=== PATIENT | female | born 1960 | race Caucasian/White ===

== ENCOUNTER 2021-12-06 10:25 | Outpatient (REF) | payer OTHER, SELFPAY ==
[2021-12-06 10:31] LABS: MANUAL DIFF FLAG NO
[2021-12-06 10:49] LABS: Basophils Absolute Auto 0.1 X10*3/uL (0.0-0.2); Basophils Percent Auto 0.9 % (0-2); Eosinophils Absolute Auto 0.2 X10*3/uL (0.0-0.4); Eosinophils Percent Auto 3.2 % (0-4); Hematocrit 45.8 % (37.0-47.0); Hemoglobin 15.4 g/dl (12.0-16.0); Imm Gran Abs Auto 0.01 X10*3/uL (0.00-0.03); Imm Gran Pct Auto 0.2 % (0.0-0.4); Lymphocytes Absolute Auto 1.6 X10*3/uL (1.2-4.9); Lymphocytes Percent Auto 28.5 % (20-40); Mean Corpuscular HGB Conc 33.6 g/dl (31.0-35.0); Mean Corpuscular Hemoglobin 31.2 pg (27.0-33.0); Mean Corpuscular Volume 92.7 fL (80.0-98.0); Mean Platelet Volume 9.8 fL (9.4-12.3); Monocytes Absolute Auto 0.3 X10*3/uL (0.1-1.2); Monocytes Percent Auto 5.9 % (2-11); Neutrophils Absolute Auto 3.5 x10*3/uL (2.0-8.3); Neutrophils Percent Auto 61.3 % (45-73); Platelet Count 201 X10*3/uL (160-400); Red Blood Count 4.94 X10*6/uL (4.20-5.50); Red Cell Distribution Width 12.9 % (11.0-16.0); White Blood Count 5.6 X10*3/uL (4.8-10.8)
[2021-12-06 11:08] LABS: Appearance Urine CLEAR; Color Urine YELLOW; Glucose Urine UA NEG (NEG); Leukocyte Esterase Urine NEG (NEG); Nitrite Urine NEG (NEG); Specific Gravity - Urine 1.025 (1.005-1.025); Urine Blood NEG (NEG); Urine Ketones NEG (NEG); Urine Protein NEG (NEG-TRACE)
[2021-12-06 11:14] LABS: Alanine Aminotransferase 19 U/L (0-31); Albumin Level 4.2 g/dL (3.5-5.0); Alkaline Phosphatase 64 U/L (39-117); Anion Gap 13 (12-20); Aspartate Amino Transferase 15 U/L (5-31); Bilirubin Total 0.4 mg/dL (0.0-1.0); Blood Urea Nitrogen 15 mg/dL (9-16); Calcium 9.4 mg/dL (8.4-10.2); Carbon Dioxide 26 mmol/L (22-29); Chloride 107 mmol/L (96-108); Cholesterol 173 mg/dL; Estimated Glomerular Filt Rate > 60; Glucose Fasting 95 mg/dL (60-99); HDL Cholesterol 60 mg/dL; LDL Cholesterol Calculated 101 mg/dl; Potassium 4.3 mmol/L (3.3-5.1); Sodium 142 mmol/L (135-145); Total Protein 6.9 g/dL (6.5-8.0); Triglycerides 62 mg/dL
== END 2021-12-06 10:26 | disposition home or self-care (01) ==
LOC: HO.LNP 10:25
PROVIDERS: Visit Provider Internal Medicine
DX: Z00.00 Encounter for general adult medical examination without abnormal findings (principal)
CPT/HCPCS: 80053; 80061; 81003; 85025

== ENCOUNTER 2023-02-03 10:50 | Outpatient (REF) | payer OTHER, SELFPAY ==
[2023-02-03 10:55] LABS: MANUAL DIFF FLAG NO
[2023-02-03 11:48] LABS: Basophils Absolute Auto 0.1 X10*3/uL (0.0-0.2); Eosinophils Absolute Auto 0.2 X10*3/uL (0.0-0.4); Eosinophils Percent Auto 3.2 % (0-4); Hematocrit 46.4 % (37.0-47.0); Hemoglobin 15.8 g/dl (12.0-16.0); Imm Gran Abs Auto 0.01 X10*3/uL (0.00-0.03); Imm Gran Pct Auto 0.2 % (0.0-0.4); Lymphocytes Absolute Auto 1.5 X10*3/uL (1.2-4.9); Lymphocytes Percent Auto 29.8 % (20-40); Mean Corpuscular HGB Conc 34.1 g/dl (31.0-35.0); Mean Corpuscular Hemoglobin 31.2 pg (27.0-33.0); Mean Corpuscular Volume 91.5 fL (80.0-98.0); Mean Platelet Volume 9.8 fL (9.4-12.3); Monocytes Absolute Auto 0.3 X10*3/uL (0.1-1.2); Monocytes Percent Auto 6.5 % (2-11); Neutrophils Percent Auto 59.3 % (45-73); Platelet Count 226 X10*3/uL (160-400); Red Blood Count 5.07 X10*6/uL (4.20-5.50)
[2023-02-03 11:53] LABS: Appearance Urine Clear; Color Urine Yellow; Glucose Urine UA Negative (Negative); Leukocyte Esterase Urine Small (1+) (Negative); Nitrite Urine Negative (Negative); PH 5.5 (5.0-9.0); UMIC TRIGGER UACC YES; Urine Blood Negative (Negative); Urine Ketones Negative (Negative); Urine Protein Negative (Neg-Trace)
[2023-02-03 12:07] LABS: Bacteria Urine None Seen (None Seen); Hyaline Casts Urine 0-2 /LPF (0-2); RBC Urine 0-2 /HPF (0-2); Squamous Epithelial Cell Urine 0-2 /HPF (0-2); UACC Culture Trigger YES; WBC Urine 0-5 /HPF (0-5)
[2023-02-03 12:43] LABS: Alanine Aminotransferase 20 U/L (0-31); Alkaline Phosphatase 66 U/L (39-117); Anion Gap 10 (12-20); Aspartate Amino Transferase 17 U/L (5-31); Bilirubin Total 0.6 mg/dL (0.0-1.0); Blood Urea Nitrogen 15 mg/dL (9-16); Calcium 8.6 mg/dL (8.4-10.2); Carbon Dioxide 26 mmol/L (22-29); Chloride 108 mmol/L (96-108); Cholesterol 182 mg/dL; Estimated Glomerular Filt Rate > 60; Glucose Fasting 100 mg/dL (60-99); HDL Cholesterol 55 mg/dL; LDL Cholesterol Calculated 109 mg/dl; Potassium 4.3 mmol/L (3.3-5.1); Sodium 140 mmol/L (135-145); Total Protein 6.6 g/dL (6.5-8.0); Triglycerides 94 mg/dL
== END 2023-02-03 10:51 | disposition home or self-care (01) ==
LOC: HO.LNP 10:50
PROVIDERS: Visit Provider Internal Medicine
DX: Z00.00 Encounter for general adult medical examination without abnormal findings (principal); R82.90 Unspecified abnormal findings in urine; Z20.2 Contact with and (suspected) exposure to infections with a predominantly sexual mode of transmission
CPT/HCPCS: 80053; 80061; 81001; 81003; 85025; 87086

== ENCOUNTER 2023-09-25 07:21 | Day surgery (SDC) | payer OTHER, SELFPAY ==
[2023-09-23 14:23] VITALS: BMI 28.5
--- OUTSIDE RECORDS SUMMARY | 2023-09-25 07:23 | XMS_ITS | Continuity of Care Document ---
Author Name Unknown Organization [facility] Address [address] [place] [address]- Care Team Providers Care Kiln Drawer Name Role Phone Kenny CASILLAS, Dre Edwards Primary Care Physician Encounter [facility] [place] Date(s): 04/18/21 - 05/18/21 [facility] [address] [place] [address] Attending Physician: [id number] Admitting Physician: Admtr, Ar8 Referring Physician: Admtr, Ar8 Allergies, Adverse Reactions, Alerts Substance Reaction Severity Status NKA Active
--- OUTSIDE RECORDS SUMMARY | 2023-09-25 07:23 | XMS_ITS | Continuity of Care Document ---
Author Name Unknown Organization [facility] Address [address] [place] [address]- Care Team Providers Care Die Equipment Operator Name Role Phone Kenny CASILLAS, Dre Edwards Primary Care Physician [phone] Encounter [facility] [place] Date(s): 02/08/20 - 02/18/20 [facility] [address] [place] [address] [facility] Attending Physician: AdmFrancia dorado Admitting Physician: Admtr, Ar8 Referring Physician: Admtr, Ar8 Allergies, Adverse Reactions, Alerts Substance Reaction Severity Status NKA Active
--- OUTSIDE RECORDS SUMMARY | 2023-09-25 07:23 | XMS_ITS | Continuity of Care Document ---
Author Name Unknown Organization [facility] Address [address] [place] [address]- Care Team Providers Care Straddle Carrier Operator Name Role Phone Galileo Guzman MD Primary Care Physician [phone] Encounter [facility] Date(s): 09/26/21 - 10/26/21 [facility] [address] [place] [address] Attending Physician: Admtr, Ar8 Admitting Physician: Admtr, Ar8 Referring Physician: Admtr, Ar8 Allergies, Adverse Reactions, Alerts Substance Reaction Severity Status NKA Active
--- OUTSIDE RECORDS SUMMARY | 2023-09-25 07:23 | XMS_ITS | Continuity of Care Document ---
Author Name Unknown Organization [facility] ter Address [address] [place] [address]- Care Team Providers Care Straw Hat Presser Name Role Phone Galileo Guzman MD Primary Care Physician [phone] Encounter [facility] [place] Date(s): 09/13/21 - 10/27/[address] [address] Attending Physician: Dre Cox MD Admitting Physician: Dre Cox MD Referring Physician: Dre Cox MD Allergies, Adverse Reactions, Alerts Substance Reaction Severity Status NKA Active
--- OUTSIDE RECORDS SUMMARY | 2023-09-25 07:23 | XMS_ITS | Continuity of Care Document ---
Author Name Unknown Organization [facility] Address [address] [address]- Care Team Providers Care Warp Hauler Name Role Phone Galileo Guzman MD Primary Care Physician [phone] Encounter [facility] [place] Date(s): 10/30/21 - 11/29/21 [facility] [address] [place] [id number] Attending Physician: Admtr, Ar8 Admitting Physician: Admtr, Ar8 Referring Physician: Admtr, Ar8 Allergies, Adverse Reactions, Alerts Substance Reaction Severity Status NKA Active
--- OUTSIDE RECORDS SUMMARY | 2023-09-25 07:23 | XMS_ITS | Patient Health Record ---
Author Name Unknown Organization Galileo Guzman MD Address [address] [place], [place] [id number] Care Team Providers Care Feed Elevator Worker Name Role Phone Galileo Guzman Primary Care Provider [phone] ALLERGIES No Known Allergies RESULTS Component Value Reference Range Notes Urine Culture Reviewed date:02/04/2023 07:46:28 PM Interpretation: Performing Lab:[address] [phone] Notes/Report: Urine Culture No growth. Complete Blood Count Auto Di ff Reviewed date:02/03/2023 03:20:57 PM Interpretation: Performing Lab:[address] [phone] Notes/Report: White Blood Count 5.0 4.8-10.8 X10*3/uL Red Blood Count 5.07 4.20-5.50 X10*6/uL Hemoglobin 15.8 12.0-16.0 g/dl Hematocrit 46.4 37.0-47.0 % Mean Corpuscular Volume 91.5 80.0-98.0 fL Mean Corpuscular Hemoglobin 31.2 27.0-33.0 pg Mean Corpuscular HGB Conc 34.1 31.0-35.0 g/dl Red Cell Distribution Width 13.0 11.0-16.0 % Platelet Count 226 160-400 X10*3/uL Mean Platelet Volume 9.8 9.4-12.3 fL Neutrophils Percent Auto 59.3 45-73 % Imm Gran Pct Auto 0.2 0.0-0.4 % Lymphocytes Percent Auto 29.8 20-40 % Monocytes Percent Auto 6.5 2-11 % Eosinophils Percent Auto 3.2 0-4 % Basophils Percent Auto 1.0 0-2 % NRBC Pct Auto 0.0 0.0-0.2 /100WBC Neutrophils Absolute Auto 3.0 2.0-8.3 x10*3/u L Imm Gran Abs Auto 0.01 0.00-0.03 X10*3/uL Lymphocytes Absolute Auto 1.5 1.2-4.9 X10*3/u L Monocytes Absolute Auto 0.3 0.1-1.2 X10*3/uL Eosinophils Absolute Auto 0.2 0.0-0.4 X10*3/u L Basophils Absolute Auto 0.1 0.0-0.2 X10*3/uL NRBC Abs Auto 0.000 0.0-0.012 X10*3/uL Comprehensive [place]. Panel Fa st Reviewed date:02/03/2023 03:21:12 PM Interpretation: Performing Lab:[facility], [address] [place] [phone] Notes/Report: Sodium 140 135-145 mmol/L Potassium 4.3 3.3-5.1 mmol/L Chloride 108 96-108 mmol/L Carbon Dioxide 26 22-29 mmol/L Anion Gap 10 12-20 Blood Urea Nitrogen 15 9-16 mg/dL Creatinine 0.83 0.5-1.4 mg/dL Estimated Glomerular Filt Rate > 60 NOTE: For -[place] individuals, multiply the result by 1.210. Chronic Kidney Disease: Estimated GFR < 60 mL/min/1.73m2 Severe Kidney Disease: Estimated GFR < 15 mL/min/1.73m2 Glucose Fasting 100 60-99 mg/dL A fasting glucose from 100-125 mg/dl is considered impaired (pre-diabetes). Calcium 8.6 8.4-10.2 mg/dL Bilirubin Total 0.6 0.0-1.0 mg/dL Aspartate Amino Transferase 17 5-31 U/L Alanine Aminotransferase 20 0-31 U/L Total Protein 6.6 6.5-8.0 g/dL Albumin Level 4.0 3.5-5.0 g/dL Alkaline Phosphatase 66 39-117 U/L Lipid Panel Reviewed date:02/03/2023 12:44:47 PM Interpretation: Performing Lab:[facility], [address] [place] [phone] Notes/Report: Triglycerides 94 Desirable Triglyceride: less than 150 mg/dL Borderline High Triglyceride 150-199 mg/dL High Triglyceride: 200-499 mg/dL Very High Triglyceride: greater than or equal to 5OO mg/dL Cholesterol 182 Desirable Cholesterol: less than 200 mg/dL Borderline High Cholesterol: 200-239 mg/dL High Cholesterol: greater than 239 mg/dL LDL Cholesterol Calculated 109 Desirable LDL: less than 100 mg/dL Near Optimal/Above Optimal LDL: 110-129 mg/dL Borderline High LDL: 130-159 mg/dL High LDL: 160-189 mg/dL Very High LDL: greater than or equal to 190 mg/dL HDL Cholesterol 55 Desirable HDL: greater than 40 mg/dL Note: This HDL assay may give artificially low results in patients with liver disease. UA ClnCatch+Micro w/rflx Cul t Reviewed date:02/04/2023 07:52:42 PM Interpretation: Performing Lab:[facility], [address] [place] [phone] Notes/Report: Urine, Clean Catch Color Urine Yellow Appearance Urine Clear PH 5.5 5.0-9.0 Glucose Urine UA Negative Negative mg/dL Urine Blood Negative Negative Specific [place] - Urine 1.020 1.005-1.025 Urine Protein Negative Neg-Trace mg/dL Urine Ketones Negative Negative mg/dL Nitrite Urine Negative Negative Leukocyte Esterase Urine Small (1+) Negative RBC Urine 0-2 0-2 /HPF WBC Urine 0-5 0-5 /HPF Squamous Epithelial Cell Urine 0-2 0-2 /HPF Bacteria Urine None Seen None Seen Hyaline Casts Urine 0-2 0-2 /LPF REASON FOR REFERRAL Reason SCREENINGFOR COLON C ANCER Diagnosis 1 Screen for colon can cer (Z12.11) Referral Organization Galileo Guzman MD Referring Provider First Name Galileo Referring Provider Last Name Thomas Referring Provider Speciality Internal M edicine Referred Provider Mansoor Tavarez Referred Provider Specialty Gastroentero logy Referral Priority Routine Referral Appointment Date 06/30/2023 IMMUNIZATIONS Vaccine Route Administration Date Status Comme nts SARS-COV-2 Moderna Unknown 02/19/2021 Administered SARS-COV-2 Moderna Unknown 03/20/2021 Administered Fluarix Quadrivalent Unknown 01/31/2022 Refused SOCIAL HISTORY Tobacco Use: Social History Observation Description Date Details (start date - stop date) Current Smoker NA - NA Sex Assigned At : Social History Observation Description Sex Assigned At Unknown Tobacco Use/Smoking Question Answer Notes Patient is a current smoker Alcohol Screen Question Answer Notes Did you have a drink containing alcohol in the p ast year? No Points 0 Interpretation Negative PROBLEMS Problem Type ICD Code Onset Dates Problem Status W/U Status Risk SNOMED Code Notes Problem History of smoking (Z87.891) Active confirmed 130878191 Problem Moderate mitral regurgitation (I34.0) Active confirmed Mitral valve disorder (69710924) Problem Vaping nicotine dependence, tobacco product (F17.290) Active confirmed [id number] VITAL SIGNS Blood pressure diastolic 68 mm Hg 02/09/2023 emily ght is down 5 pounds since 01-31-22 Height 63 in 02/09/2023 weight is down 5 pounds since 01-31-22 Blood pressure systolic 122 mm Hg 02/09/2023 weig ht is down 5 pounds since 01-31-22 Weight 160 lbs 02/09/2023 weight is down 5 pounds since 01-31-22 BMI 28.34 kg/m2 02/09/2023 weight is down 5 pounds since 01-31-22 Encounters Encounter Location Date Provider Diagnosis Galileo Guzman MD [address] [place] [address] Drive [address] [place] [phone] 02/09/2023 Galileo Guzman Annual physical exam Z00.00 and Vaping nicotine dependence, tobacco product F17.290 Galileo Guzman MD [address] [place] [address] Drive [address] [place] [phone] 02/03/2023 Galileo Guzman Blood tests for routine general physical examination Z00.00 ASSESSMENTS Encounter Date Diagnosis Assessment Notes Treatment Notes Treatment Clinical Notes 02/09/2023 Annual physical exam (ICD-10 - Z00.00) labs reviewed and discussed with patient, needs referral for colonoscopy to dr tavarez or fred/ LILYIA HAS BEEN SCHEDULED WITH DR TAVAREZ FOR JUNE 30 2023 AT 130 PM , SHE HAS BEEN NOTIFIED 02/09/2023 Vaping nicotine dependence, tobacco product (ICD-10 - F17.290) is going to try quitting 02/03/2023 Blood tests for routine general physical examination (ICD-10 - Z00.00) PLAN OF TREATMENT Pending Test Test Name Order Date CA echo transthoracic complete 1 CA echo transthoracic complete 2 Next Appt Details Provider Name:Galileo Rubi ier, 02/08/2024 08:00:00 AM, [address] [place] [address], [address], [place], [place], [phone], Provider Name:Galileo Rubi ier, 02/15/2024 02:30:00 PM, [address] [place] [address], [address], [place], [place], [phone], Insurance Providers Payer Name Payer Address Payer Phone Subscriber Number Group Number Insured Name Patient Relationship to Insured Coverage Start Date Coverage End Date JERSON WHITT [id number] AFUA Perdomo [phone] [id number] Liliya Fajardo Self - patient is the insured MEDICAL (GENERAL) HISTORY Medical History History ICD Code colonoscopy 2012
--- OUTSIDE RECORDS SUMMARY | 2023-09-25 07:23 | XMS_ITS | Continuity of Care Document ---
Author Name Unknown Organization [facility] Address [address] [place] [address]- Care Team Providers Care Commercial Driver Name Role Phone Kenny CASILLAS, Dre Edwards Primary Care Physician Encounter [facility] [place] Date(s): 03/12/20 - 03/22/20 [facility] [address] [place] [address] [facility] Attending Physician: AdmtrFrancia Admitting Physician: Admtr, Ar8 Referring Physician: Admtr, Ar8 Allergies, Adverse Reactions, Alerts Substance Reaction Severity Status NKA Active
--- OUTSIDE RECORDS SUMMARY | 2023-09-25 07:23 | XMS_ITS | Continuity of Care Document ---
Author Name Unknown Organization [facility] Address [address] [place] [address]- Care Team Providers Care Insulation Board Head Saw Operator Name Role Phone Kenny CASILLAS, Dre Edwards Primary Care Physician Encounter [facility] Date(s): 02/07/21 - 02/08/[address] [address]- Attending Physician: Dre Cox MD Allergies, Adverse Reactions, Alerts Substance Reaction Severity Status NKA Active
--- OUTSIDE RECORDS SUMMARY | 2023-09-25 07:23 | XMS_ITS | Continuity of Care Document ---
Author Name Unknown Organization [facility] ter Address [address] [place] [address]- Care Team Providers Care Vine Pruner Name Role Phone Thomas CASILLAS, Galileo Primary Care Physician [phone] Encounter [facility] Date(s): 06/17/21 - 08/04/[address] [address] Attending Physician: Dre Cox MD Admitting Physician: Dre Cox MD Referring Physician: Der Cox MD Allergies, Adverse Reactions, Alerts Substance Reaction Severity Status NKA Active
--- OUTSIDE RECORDS SUMMARY | 2023-09-25 07:23 | XMS_ITS | Continuity of Care Document ---
Author Name Unknown Organization [facility] ter Address [address] [place] [address]- Care Team Providers Care Quantity Surveyor Name Role Phone Dre Cox MD Primary Care Physician [phone] Encounter [facility] Date(s): 02/06/20 - 02/07/[address] [address]- [facility] Attending Physician: Dre Cox MD Allergies, Adverse Reactions, Alerts Substance Reaction Severity Status NKA Active
[2023-09-25 08:14] VITALS: BP 137/76; PULSE 68; RESP 18; TEMP 36.6; O2SAT 96
--- NOTE | 2023-09-25 08:33 | P.CONAN_ITS ---
[facility] Past Medical History Medical History Kidney stones Family History Family history of problems with anesthesia: No Surgical History Surgical History History of carpal tunnel release Hx of colonoscopy History of Problems with Anesthesia: No Social History Social History Patient Tobacco Use Status: Current everyday Tobacco user Tobacco use type: Smokeless Tobacco Have you been hit, kicked, punched, or otherwise hurt by someone within the past year? If so, by whom?: No Are you DNR?: No Advance Directives: No Advance Directives Information Provided: Yes Recently lost weight without trying: No Eating poorly because of decreased appetite: No Nutrition Risks: No Nutritional Risk Patient : No Meds Allergies Allergy/AdvReac Type Severity Reaction Status Date / Time No Known Allergies Allergy Verified 09/24/23 10:33 Active Medications: Current Medications Ondansetron HCl (Ondansetron Hcl 4 Mg/2 Ml Vial) 4 mg IVPUSH ONCE PRN PRN Reason: Nausea and Vomiting Sodium Biphosphate/Sodium Phosphate (Sodium Phosphate,[place]-Dibasic 133 Ml Enema) 133 ml [place] ONCE PRN PRN Reason: Poor Colonoscopy Prep Results Home Medications Medication Instructions Recorded Confirmed Last Taken Type No Known Home Meds 09/23/23 09/23/23 Unknown History Exam Exam Date and Time: September 25, 2023 0834 Height,Weight and Vital Signs: Height 5 ft 4 in Weight 75.296 kg Last Vital Signs Temp 97.8 F 09/25/23 08:14 Pulse 68 09/25/23 08:14 Resp 18 09/25/23 08:14 BP 137/76 09/25/23 08:14 Pulse Ox 96 09/25/23 08:14 O2 Del Method Room Air 09/25/23 08:14 Airway Mallampati Class: I TM Dist: >3cm Neck ROM: Full Loose/Missing/Broken Teeth: No Heart: rrr Lungs: clear Assessment and Plan Final Anesthetic Review Family History of Problems with Anesthesia: No History of Problems with Anesthesia: No Final Preanesthetic Review: No Changes in Pt Med Stat, Meds/Allgs Chart Reviewed, Consent Obtained/Reviewed and Anes Risks/Benef Reviewed Patient Risk: Intermediate Procedure Risk: Low Anesthetic Plan Anesthetic Plan: MAC: Disposition: Standard PACU
--- NOTE | 2023-09-25 09:24 | P.BOP_ITS ---
Brief Operative Note Date of Service: 09/25/23 Pre-op diagnosis: Screening Post-op diagnosis: other (Cecal polyp) Procedure: Colonoscopy to the cecum and TI with bx/removal of polyp Surgeon: Mansoor Perez MD Anesthesia: MAC Was an Closed Circuit Screen Watcher used for this Procedure?: No Estimated blood loss (mL): 2.0 Pathology: other (A. Cecal polyp) Condition: stable Disposition: PACU
[2023-09-25 09:26] VITALS: BP 103/56; PULSE 70; RESP 16; TEMP 36.2; O2SAT 95
--- NOTE | 2023-09-25 09:39 | OP_ITS ---
DATE OF SERVICE: 09/25/2023 SURGEON: Mansoor Perez MD INDICATIONS: The patient presents for evaluation of colorectal cancer screening. Full consent obtained from her for this, including risks of bleeding and perforation. PREOPERATIVE DIAGNOSIS: Colorectal cancer screening. POSTOPERATIVE DIAGNOSIS: PROCEDURE PERFORMED: Colonoscopy to cecum and terminal ileum with biopsy and removal of polyp. ESTIMATED BLOOD LOSS: COMPLICATIONS: ANESTHESIA: Monitored anesthesia care. ASSISTANTS: SPECIMENS: POSTOPERATIVE DIAGNOSES: Colorectal cancer screening, small colon polyp, mild sigmoid diverticulosis, internal hemorrhoids. DESCRIPTION OF PROCEDURE: The patient was placed in the left lateral decubitus position. The digital rectal exam revealed no abnormalities. The Olympus pediatric colonoscope was entered into the rectum and advanced easily to the cecum. Once in the cecum, I did identify the cecal pouch with appendiceal orifice and a normal appearing ileocecal valve. The terminal ileum was cannulated and appeared normal. The scope was withdrawn back in the colon. The entire cecum was well visualized. There was a 3 or 4 mm polyp in the cecum, which was biopsied and completely removed with cold biopsy forceps. The remainder of the cecum appeared normal. The scope was slowly withdrawn assessing all mucosal surfaces carefully. Preparation was excellent. I did not visualize any other polyps, colitis, nor angiodysplasia. There was a mild amount of sigmoid diverticulosis. In the rectum, scope was retroflexed visualizing internal hemorrhoids, but no other pathology. The rectal mucosa appeared normal. The scope was straightened and withdrawn from the patient. She tolerated the procedure well and was returned to the recovery area in stable condition. IMPRESSION: 1. Small colon polyp, status post biopsy removal. 2. Mild diverticulosis. 3. Internal hemorrhoids. PLAN: The results of the pathology will be checked; if this is a tubular adenoma, I would recommend a followup colonoscopy in 5 years. If it is only hyperplastic, I would recommend a followup coloscopy in 10 years. She will otherwise see me on a p.r.n. basis. MD TRAVIS Montes/DONA / [phone]
[2023-09-25 09:41] VITALS: BP 97/59; PULSE 60; RESP 16; TEMP 36.5; O2SAT 97
== END 2023-09-25 12:02 | disposition home or self-care (01) ==
PROVIDERS: PCP Internal Medicine; Visit Provider Internal Medicine
PROC: 0DJD8ZZ Inspection of Lower Intestinal Tract, Via Natural or Artificial Opening Endoscopic (ICD-10-PCS; CPT 45378; principal; 2023-09-25 08:30)
DX: Z12.11 Encounter for screening for malignant neoplasm of colon (principal); D12.0 Benign neoplasm of cecum; K57.30 Diverticulosis of large intestine without perforation or abscess without bleeding; K64.8 Other hemorrhoids; Z87.442 Personal history of urinary calculi
CPT/HCPCS: 45380; 88305

== ENCOUNTER 2024-02-08 10:35 | Outpatient (REF) | payer OTHER, SELFPAY ==
[2024-02-08 10:38] LABS: MANUAL DIFF FLAG NO
[2024-02-08 11:21] LABS: Appearance Urine Clear; Color Urine Dark Yellow; Glucose Urine UA Negative (Negative); Leukocyte Esterase Urine Small (1+) (Negative); Nitrite Urine Negative (Negative); PH 5.5 (5.0-9.0); Specific Gravity - Urine 1.025 (1.005-1.025); UMIC TRIGGER UACC YES; Urine Blood Negative (Negative); Urine Ketones Trace mg/dL (Negative); Urine Protein Negative (Neg-Trace)
[2024-02-08 11:23] LABS: Basophils Absolute Auto 0.1 X10*3/uL (0.0-0.2); Basophils Percent Auto 0.9 % (0-2); Eosinophils Absolute Auto 0.1 X10*3/uL (0.0-0.4); Eosinophils Percent Auto 2.5 % (0-4); Hematocrit 47.9 % (37.0-47.0); Hemoglobin 15.9 g/dl (12.0-16.0); Imm Gran Abs Auto 0.01 X10*3/uL (0.00-0.03); Imm Gran Pct Auto 0.2 % (0.0-0.4); Lymphocytes Absolute Auto 1.7 X10*3/uL (1.2-4.9); Lymphocytes Percent Auto 29.9 % (20-40); Mean Corpuscular HGB Conc 33.2 g/dl (31.0-35.0); Mean Corpuscular Hemoglobin 30.6 pg (27.0-33.0); Mean Corpuscular Volume 92.1 fL (80.0-98.0); Mean Platelet Volume 9.7 fL (9.4-12.3); Monocytes Absolute Auto 0.4 X10*3/uL (0.1-1.2); Neutrophils Absolute Auto 3.3 x10*3/uL (2.0-8.3); Neutrophils Percent Auto 59.5 % (45-73); Platelet Count 246 X10*3/uL (160-400); Red Cell Distribution Width 13.2 % (11.0-16.0); White Blood Count 5.6 X10*3/uL (4.8-10.8)
[2024-02-08 11:41] LABS: Bacteria Urine None Seen (None Seen); Hyaline Casts Urine 0-2 /LPF (0-2); RBC Urine 0-2 /HPF (0-2); Squamous Epithelial Cell Urine 0-2 /HPF (0-2); UACC Culture Trigger YES; WBC Urine 0-5 /HPF (0-5)
[2024-02-08 12:59] LABS: Alanine Aminotransferase 18 U/L (0-31); Albumin Level 4.2 g/dL (3.5-5.0); Alkaline Phosphatase 62 U/L (39-117); Anion Gap 12 (12-20); Aspartate Amino Transferase 17 U/L (5-31); Bilirubin Total 0.4 mg/dL (0.0-1.0); Blood Urea Nitrogen 13 mg/dL (9-16); Calcium 9.5 mg/dL (8.4-10.2); Carbon Dioxide 27 mmol/L (22-29); Chloride 109 mmol/L (96-108); Cholesterol 176 mg/dL (<200); Estimated Glomerular Filt Rate > 60; Glucose Fasting 95 mg/dL (60-99); HDL Cholesterol 59 mg/dL (>40); LDL Cholesterol Calculated 100 mg/dL (<100); Potassium 4.2 mmol/L (3.3-5.1); Sodium 144 mmol/L (135-145); Total Protein 7.3 g/dL (6.5-8.0); Triglycerides 89 mg/dL (<150)
== END 2024-02-08 10:36 | disposition home or self-care (01) ==
LOC: HO.LNP 10:35
PROVIDERS: Visit Provider Internal Medicine
DX: Z00.00 Encounter for general adult medical examination without abnormal findings (principal); Z13.6 Encounter for screening for cardiovascular disorders; R82.90 Unspecified abnormal findings in urine
CPT/HCPCS: 80053; 80061; 81001; 85025; 87086

== ENCOUNTER → 2024-02-11 14:48 | Outpatient (REF) | payer OTHER, SELFPAY ==
--- NOTE | 2024-02-11 14:51 | CA_ITS ---
Transthoracic Echocardiogram Patient (Last, First, Middle): Xenia Fajardo D Gender: Female Date of : 1960 Age: 63 Procedure Date: 02/11/2024 Procedure Type: Transthoracic Echocardiogram Location: OP Height: 160.02 cm Weight: 73.48 kg BSA: 1.77 m2 Heart Rate: 67 bpm BP: 122 / 70 mmHg Spindle Repairer: RICK Referring MD: Galileo Guzman MD Commercial Credit Reviewer: Joseph Jeong MD Symptoms: MODERATE MITRAL REGURG Study Quality: Fair ECG Rhythm: Sinus Conclusions: - 1. Normal LV ejection fraction 55-60% with impaired relaxation filling pattern 2. Mild prolapse of the posterior leaflet with mild mitral regurgitation 3. Normal RV systolic pressure 4. Mildly dilated ascending aorta at 3.9 cm 5. No pericardial effusion Findings Left Ventricle Normal left ventricular size, thickness, and systolic function. The visually estimated ejection fraction is between 55-60%. Spectral Doppler is indicative of an impaired relaxation filling pattern. E/E prime ratio is between 8 and 15 consistent with indeterminate filling pressures. Right Ventricle Normal right ventricular cavity size and systolic function. Atria The left atrium is normal in size. There is no evidence of interatrial shunt. The right atrium is normal in size. Aortic Valve Normal aortic valve structure and function. There is no aortic valve stenosis. There is no aortic valve regurgitation. 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 There is mild anterior and posterior mitral leaflet thickening. There is mild posterior mitral leaflet prolapse. There is mild mitral valve regurgitation. There is no mitral valve stenosis. Pulmonic Valve The pulmonic valve is likely normal. Tricuspid Valve Normal tricuspid valve structure. There is trace tricuspid valve regurgitation. The right ventricular systolic pressure is normal. The right ventricular systolic pressure is 26 mmHg. Normal right atrial pressure. There is no evidence of pulmonary hypertension. Great Vessels The pulmonary artery was not well visualized. There is mild dilatation of the ascending aorta measuring 3.90 cm. Venous The inferior vena cava is normal in size and collapses greater than 50% with inspiration. Pericardium/Pleural There is no evidence of pericardial effusion. Prior Study Comparison No prior study available for comparison. Measurements 2D Linear Measurements IVSd: 0.82 0.6-0.9/0.6-1.0 cm LVIDd: 4.98 3.9-5.3/4.2-5.9 cm LVIDd Index: 2.81 2.4-3.2/2.2-3.1 cm/m2 LVIDs: 3.41 2.0-3.6 cm LVPWd: 0.85 0.7-1.1 cm LA Diam: 4.00 2.7-3.8/3.0-4.0 cm LAIDs Index: 2.26 1.5-2.3 cm/m2 LV Mass: 177.40 67-162/88-224 g LV Mass Index: 100.22 43-95/49-115 g/m2 LVOT Diam: 2.00 3.0+(-)1.3 cm Mitral Valve MV Pk E: 0.81 MV PK A: 1.00 MV Decel Time: 142.00 E/A: 0.80 E'Lateral: 9.17 E'Medial: 9.79 E/E' Med: 8.30 E/E' Lat: 8.90 PHT: 42.00 MVA PHT: 5.24 Decel [place]: 5.74 Aortic Valve AoV Pk Talib: 1.42 AoV Pk Grad: 8.00 LUDWIN: 2.32 LVOT LVOT Pk Talib: 1.05 LVOT Mn Talib: 0.78 LVOT VTI: 0.22 LVOT Pk Grad: 4.00 LVOT Mn Grad: 3.00 LVOT Diam: 2.00 LVOT Area: 3.14 Diastolic Function MV Pk E: 0.81 MV Pk A: 1.00 E/A: 0.80 E'Medial: 9.79 E/E' Med: 8.30 E' Laterial: 9.17 E/E' Lat: 8.90 Right Ventricle TAPSE (mm): 25.20 TVS' Talib: 17.70 Tricuspid Valve TR Pk Talib: 2.42 TR Pk Grad: 23.00 RA Press: 3.00 RVSP: 26.00 Great Vessels Aorta Sinus of Valsalva: 3.00 2.0-3.5 cm Ao Asc: 3.90 2.1-3.4 cm Pulmonary Valve PV Pk Talib: 1.44 Peak PV Grad: 8.00 Updated in Other Vendor System with Status of Final Joseph Jeong MD electronically signed on 02/12/2024 4:10:18 PM with status of Final
== END ==
LOC: HO.CARD 14:48
PROVIDERS: PCP Internal Medicine; Visit Provider Internal Medicine
DX: I34.0 Nonrheumatic mitral (valve) insufficiency (principal)
CPT/HCPCS: 93306

== ENCOUNTER → 2024-02-11 14:51 | Outpatient (BNV) | payer OTHER, SELFPAY | PROVIDERS: PCP Internal Medicine; Visit Provider Internal Medicine Cardiovascular Disease | DX: I34.0 Nonrheumatic mitral (valve) insufficiency (principal) | CPT/HCPCS: 93306 ==

== ENCOUNTER 2024-04-07 16:20 | Outpatient (REF) | payer OTHER, SELFPAY ==
[2024-04-07 18:52] LABS: Blood Urea Nitrogen 11 mg/dL (9-16); Estimated Glomerular Filt Rate > 60
== END 2024-04-07 16:21 | disposition home or self-care (01) ==
LOC: HO.XRAY 16:20
PROVIDERS: PCP Internal Medicine; Visit Provider Otolaryngology
DX: K13.70 Unspecified lesions of oral mucosa (principal)
CPT/HCPCS: 36415; 82565; 84520

== ENCOUNTER 2024-04-08 10:16 | Outpatient (REF) | payer OTHER, SELFPAY ==
--- NOTE | ~2024-04-08 | CT_ITS ---
CT SOFT TISSUE NECK WITH CONTRAST CLINICAL INFORMATION: Lesion right base of tongue. COMPARISON: None available. TECHNIQUE: Following the intravenous administration of 100 mL of Omnipaque 350 intravenous contrast, helical imaging was performed in the axial plane with generation of coronal and sagittal reformatted images. This CT examination was performed using dose optimization techniques as appropriate, variously including the following: *Automated exposure control *Adjustment of mA and/or kV according to patient size (this includes techniques or standardized protocols for targeted exams where dose is matched to indication/reason for exam; i.e. extremities or head) *Use of iterative reconstruction technique FINDINGS: Mild asymmetric soft tissue fullness involving the right tongue base and possibly the right glossotonsillar sulcus, not well assessed given significant dental streak artifact obscuring these areas. If a lesion is seen clinically, a PET CT could be obtained for further assessment. There are nonpathologic size criteria lymph nodes throughout the suprahyoid and infrahyoid neck bilaterally that can also be assessed with PET. No additional superficial mucosal space lesions. Laryngeal structures are closely opposed in phonation and therefore difficult to assess. The parotid glands, the submandibular glands, and the thyroid gland are unremarkable. No retropharyngeal fluid collections. Imaged upper lungs are clear. Imaged upper mediastinum is unremarkable. There is multilevel cervical spondylosis which is severe at the C4-C5, C5-C6, and C6-C7 levels. A focus of gas within the left prevertebral soft tissues at C6 is most likely degenerative. Mild mucosal thickening within the left maxillary sinus. The remaining paranasal sinuses and the mastoid air cells are clear. The TMJs are unremarkable. Partially imaged intracranial compartment is unremarkable. CT/CT soft tissue neck w IV con IMPRESSION: Mild asymmetric soft tissue fullness involving the right tongue base and possibly the right glossotonsillar sulcus, not well assessed given significant dental streak artifact obscuring these areas. If a lesion is seen clinically, a PET CT could be obtained for further assessment. There are nonpathologic size criteria lymph nodes throughout the suprahyoid and infrahyoid neck bilaterally that can also be assessed with PET.
[2024-04-08] MEDS: iohexoL 350 MG/ML 100 ML INFUS..BTL IV (11:12)
== END 2024-04-08 10:17 | disposition home or self-care (01) ==
LOC: HO.CT 10:16
PROVIDERS: PCP Internal Medicine; Visit Provider Otolaryngology
DX: R13.10 Dysphagia, unspecified (principal)
CPT/HCPCS: 70491; Q9967

== ENCOUNTER 2025-02-10 10:33 | Outpatient (REF) | payer OTHER, SELFPAY ==
[2025-02-10 10:36] LABS: MANUAL DIFF FLAG NO
[2025-02-10 11:11] LABS: Basophils Absolute Auto 0.1 X10*3/uL (0.0-0.2); Eosinophils Absolute Auto 0.2 X10*3/uL (0.0-0.4); Eosinophils Percent Auto 3.8 % (0-4); Hematocrit 47.1 % (37.0-47.0); Hemoglobin 15.6 g/dl (12.0-16.0); Imm Gran Abs Auto 0.01 X10*3/uL (0.00-0.03); Imm Gran Pct Auto 0.2 % (0.0-0.4); Lymphocytes Absolute Auto 1.4 X10*3/uL (1.2-4.9); Lymphocytes Percent Auto 26.3 % (20-40); Mean Corpuscular HGB Conc 33.1 g/dl (31.0-35.0); Mean Corpuscular Hemoglobin 30.2 pg (27.0-33.0); Mean Corpuscular Volume 91.1 fL (80.0-98.0); Mean Platelet Volume 9.4 fL (9.4-12.3); Monocytes Absolute Auto 0.4 X10*3/uL (0.1-1.2); Monocytes Percent Auto 6.9 % (2-11); Neutrophils Absolute Auto 3.3 x10*3/uL (2.0-8.3); Neutrophils Percent Auto 61.8 % (45-73); Platelet Count 222 X10*3/uL (160-400); Red Blood Count 5.17 X10*6/uL (4.20-5.50); Red Cell Distribution Width 13.2 % (11.0-16.0); White Blood Count 5.3 X10*3/uL (4.8-10.8)
[2025-02-10 11:14] LABS: Appearance Urine Clear; Color Urine Yellow; Glucose Urine UA Negative (Negative); Leukocyte Esterase Urine Trace (Negative); Nitrite Urine Negative (Negative); PH 5.5 (5.0-9.0); Specific Gravity - Urine 1.025 (1.005-1.025); UMIC TRIGGER UACC YES; Urine Blood Negative (Negative); Urine Ketones Trace mg/dL (Negative); Urine Protein Negative (Neg-Trace)
[2025-02-10 11:19] LABS: Bacteria Urine None Seen (None Seen); Hyaline Casts Urine 0-2 /LPF (0-2); RBC Urine 0-2 /HPF (0-2); WBC Urine 0-5 /HPF (0-5)
[2025-02-10 11:27] LABS: Alanine Aminotransferase 23 U/L (0-31); Alkaline Phosphatase 69 U/L (39-117); Anion Gap 9 (12-20); Aspartate Amino Transferase 23 U/L (5-31); Bilirubin Total 0.4 mg/dL (0.0-1.0); Blood Urea Nitrogen 13 mg/dL (9-16); Calcium 9.3 mg/dL (8.4-10.2); Carbon Dioxide 28 mmol/L (22-29); Chloride 109 mmol/L (96-108); Cholesterol 153 mg/dL (<200); Estimated Glomerular Filt Rate > 60; Glucose Fasting 97 mg/dL (60-99); HDL Cholesterol 55 mg/dL (>40); LDL Cholesterol Calculated 89 mg/dL (<100); Potassium 4.4 mmol/L (3.3-5.1); Sodium 142 mmol/L (135-145); Total Protein 7.5 g/dL (6.5-8.0); Triglycerides 49 mg/dL (<150)
--- OUTSIDE RECORDS SUMMARY | 2025-02-10 12:02 | XMS_ITS ---
Author Organization Galileo Guzman MD Address [address] [place], [place] [id number] Care Team Providers Care Private Investigator Name Role Phone Galileo Guzman Primary Care Provider Results Component Value Reference Range Notes Complete Blood Count Auto Di ff (Not yet reviewed by provider) Interpretation: Performing Lab:[facility], [address] [place] [phone] Notes/Report: White Blood Count 5.3 4.8-10.8 X10*3/uL Red Blood Count 5.17 4.20-5.50 X10*6/uL Hemoglobin 15.6 12.0-16.0 g/dl Hematocrit 47.1 37.0-47.0 % Mean Corpuscular Volume 91.1 80.0-98.0 fL Mean Corpuscular Hemoglobin 30.2 27.0-33.0 pg Mean Corpuscular HGB Conc 33.1 31.0-35.0 g/dl Red Cell Distribution Width 13.2 11.0-16.0 % Platelet Count 222 160-400 X10*3/uL Mean Platelet Volume 9.4 9.4-12.3 fL Neutrophils Percent Auto 61.8 45-73 % Imm Gran Pct Auto 0.2 0.0-0.4 % Lymphocytes Percent Auto 26.3 20-40 % Monocytes Percent Auto 6.9 2-11 % Eosinophils Percent Auto 3.8 0-4 % Basophils Percent Auto 1.0 0-2 % NRBC Pct Auto 0.0 0.0-0.2 /100WBC Neutrophils Absolute Auto 3.3 2.0-8.3 x10*3/u L Imm Gran Abs Auto 0.01 0.00-0.03 X10*3/uL Lymphocytes Absolute Auto 1.4 1.2-4.9 X10*3/u L Monocytes Absolute Auto 0.4 0.1-1.2 X10*3/uL Eosinophils Absolute Auto 0.2 0.0-0.4 X10*3/u L Basophils Absolute Auto 0.1 0.0-0.2 X10*3/uL NRBC Abs Auto 0.000 0.0-0.012 X10*3/uL Comprehensive [place]. Panel Fa st (Not yet reviewed by provider) Interpretation: Performing Lab:[facility], [address] [place] [phone] Notes/Report: Sodium 142 135-145 mmol/L Potassium 4.4 3.3-5.1 mmol/L Chloride 109 96-108 mmol/L Carbon Dioxide 28 22-29 mmol/L Anion Gap 9 12-20 Blood Urea Nitrogen 13 9-16 mg/dL Creatinine 0.80 0.5-1.4 mg/dL Estimated Glomerular Filt Rate > 60 Chronic Kidney Disease: Estimated GFR < 60 mL/min/1.73m2 Severe Kidney Disease: Estimated GFR < 15 mL/min/1.73m2 Glucose Fasting 97 60-99 mg/dL Calcium 9.3 8.4-10.2 mg/dL Bilirubin Total 0.4 0.0-1.0 mg/dL Aspartate Amino Transferase 23 5-31 U/L Alanine Aminotransferase 23 0-31 U/L Total Protein 7.5 6.5-8.0 g/dL Albumin Level 4.0 3.5-5.0 g/dL Alkaline Phosphatase 69 39-117 U/L Lipid Panel (Not yet reviewe d by provider) Interpretation: Performing Lab:[facility], [address] [place] [phone] Notes/Report: Triglycerides 49 <150 mg/dL Desirable Triglyceride: less than 150 mg/dL Borderline High Triglyceride 150-199 mg/dL High Triglyceride: 200-499 mg/dL Very High Triglyceride: greater than or equal to 5OO mg/dL Cholesterol 153 <200 mg/dL Desirable Cholesterol: less than 200 mg/dL Borderline High Cholesterol: 200-239 mg/dL High Cholesterol: greater than 239 mg/dL LDL Cholesterol Calculated 89 <100 mg/dL Desirable LDL: less than 100 mg/dL Near Optimal/Above Optimal LDL: 110-129 mg/dL Borderline High LDL: 130-159 mg/dL High LDL: 160-189 mg/dL Very High LDL: greater than or equal to 190 mg/dL HDL Cholesterol 55 >40 mg/dL Desirable HDL: greater than 40 mg/dL Note: This HDL assay may give artificially low results in patients with liver disease. UA ClnCatch+Micro w/rflx Cul t (Not yet reviewed by provider) Interpretation: Performing Lab:[facility], [address] [place] [phone] Notes/Report: Urine, Clean Catch Color Urine Yellow Appearance Urine Clear PH 5.5 5.0-9.0 Glucose Urine UA Negative Negative mg/dL Urine Blood Negative Negative Specific Berino - Urine 1.025 1.005-1.025 Urine Protein Negative Neg-Trace mg/dL Urine Ketones Trace Negative mg/dL Nitrite Urine Negative Negative Leukocyte Esterase Urine Trace Negative RBC Urine 0-2 0-2 /HPF WBC Urine 0-5 0-5 /HPF Squamous Epithelial Cell Urine 3-5 0-2 /HPF Bacteria Urine None Seen None Seen Hyaline Casts Urine 0-2 0-2 /LPF REASON FOR VISIT yearly labs Encounters Encounter Location Date Provider Diagnosis Galileo Guzman MD [address] [place] [address] [place] [phone] 02/10/2025 Galileo Guzman Blood tests for routine general physical examination Z00.00 Assessments Encounter Date Diagnosis (ICD Code) Assessment Notes Treatment Notes Treatment Clinical Notes Section Notes 02/10/2025 Blood tests for routine general physical examination (ICD-10 - Z00.00) Plan Of Treatment Pending Test Test Name Order Date Complete Blood Count Auto Diff 5 Comprehensive [place]. Panel Fast 5 Lipid Panel 02/10/2025 UA ClnCatch+Micro w/rflx Cult 02/10/2025 Next Appt Details Provider Name:Galileo taylor, 02/17/2025 11:00:00 AM, [address] [place] [address], [address], [place], [place], [phone], Progress Notes * David CALERO: [birth year] (64 yo F)Acc No.[id number]:02/10/2025 Progress Note Patient:?Xenia CALERO Provider:?Galileo Guzman MD :1960???Age:64 Y???Sex:Female D ate:02/10/2025 Address:[address] [place] [address] Subjective: * Chief Complaints: * ???1. Yearly labs. * Medical History:? Objective: * Vitals:? Assessment: * Assessment: 1.?Blood tests for routine g eneral physical examination - Z00.00 (Primary)??? Plan: * Treatment: * Procedure Codes:?77033 VENIP UNCT, ROUTINE* * * The named appointment provid er may or may not be the originator of this progress note, and it is not deemed complete until electronically signed by the appointment provider. Sign off status: Pending * Provider:?Galileo Guzman MD Date:?0 02/10/2025 Generated for Omar simental/Dede/eTransmitting on:?02/10/2025 12:02 PM EDT
--- OUTSIDE RECORDS SUMMARY | 2025-02-10 12:02 | XMS_ITS ---
Author Organization [facility] Address [address] [place] [address] Care Team Providers Care Legal Records Manager Name Role Phone Thomas CASILLAS, Galileo Primary Care Provider Mansoor Fregoso Unavailable [phone] REASON FOR VISIT screening Problems Problem Type SNOMED Code ICD Code Onset Dates Problem Status W/U Status Risk Notes Problem Diverticular disease of colon (517765720) Diverticulosis of large intestine without perforation or abscess without bleeding (K57.30) Active confirmed Encounters Encounter Location Date Provider Diagnosis [facility] Outpatient [address] [place] [phone] 09/25/2023 Mansoor Perez Encounter for scre ening colonoscopy Z12.11 ; Colon polyps K63.5 ; Diverticulosis of large intestine without perforation or abscess without bleeding K57.30 and Other hemorrhoids K64.8 Assessments Encounter Date Diagnosis (ICD Code) Assessment Notes Treatment Notes Treatment Clinical Notes Section Notes 09/25/2023 Encounter for screening colonoscopy (ICD-10 - Z12.11) 09/25/2023 Colon polyps (ICD-10 - K63.5) 09/25/2023 Diverticulosis of large intestine without perforation or abscess without bleeding (ICD-10 - K57.30) 09/25/2023 Other hemorrhoids (ICD-10 - K64.8) Plan Of Treatment No Information Progress Notes * LILIYA PIERSONDOB: [birth year] (64 yo F)Acc No.[id number]:09/25/2023 COLON WITH MAC Patient:?LILIYA PIERSON Provider:?Mansoor Perez MD :1960???Age:62 Y???Sex:Female D ate:09/25/2023 Address:[address] [place], [place] [phone] Pcp:Galileo Guzman MD Subjective: * Chief Complaints: * ???1. Screening. * Medical History:? Objective: * Vitals:? Assessment: * Assessment: 1.?Encounter for screening c olonoscopy - Z12.11 (Primary)???2.?Colon polyps - K63.5???3.?Diverticulosis of large intestine without perforation or abscess without bleeding - K57.30???4.?Other hemorrhoids - K64.8??? Plan: * Treatment: * Procedure Codes:?86447 COLON OSCOPY AND BIOPSY, Modifiers: 33 * * The named appointment provid er may or may not be the originator of this progress note, and it is not deemed complete until electronically signed by the appointment provider. Sign off status: Pending * Provider:?Mansoor Perez MD Date:? 023 Generated for Omar simental/Dede/eTransmitting on:?02/10/2025 12:02 PM EDT
--- OUTSIDE RECORDS SUMMARY | 2025-02-10 12:02 | XMS_ITS | Patient Health Record ---
Author Organization [facility] Address [address] [place] [address] Care Team Providers Care Clinical Data Assistant Name Role Phone Thomas CASILLAS, Galileo Primary Care Provider Mansoor Fregoso [phone] Allergies No Known Allergies Reason For Referral No Information Social History Tobacco Use: Social History Observation Description Date Details (start date - stop date) Never Smoker NA - NA Tobacco Use/Smoking Question Answer Notes Patient is a nonsmoker Alcohol Screen Question Answer Notes Did you have a drink contain ing alcohol in the past year? Yes How often did you have a dri nk containing alcohol in the past year? Never (0 point) How many drinks did you have on a typical day when you were drinking in the past year? 1 or 2 drinks (0 point) How often did you have 6 or more drinks on one occasion in the past year? Never (0 point) Points 0 Interpretation Negative Section Notes: Vapes nicotine; no sig alcoh ol Problems Problem Type SNOMED Code ICD Code Onset Dates Problem Status W/U Status Risk Notes Problem [id number] Colon cancer screening (Z12.11) Active confirmed Problem Diverticular disease of colon (187084821) Diverticulosis of large intestine without perforation or abscess without bleeding (K57.30) Active confirmed Problem [id number] Preprocedural examination (Z01.818) Active confirmed Plan Of Treatment Pending Test Test Name Order Date Pathology 09/25/2023 Future Test Test Name Order Date COLONOSCOPY 06/30/2023 Insurance Providers Payer Name Payer Address Payer Phone Subscriber Number Group Number Insured Name Patient Relationship to Insured Coverage Start Date Coverage End Date [employer] [address] [place] [address] [id number] LILIYA PIERSON Self - patient is the insured Medical (General) History Medical History History ICD Code Kidney stones Negative screening colonoscopy in 2012 w [facility] [address] Gutierrez Denies PR,DM,CVA,Lung disease,renal dise ase Surgical History Surgery Date(Month/Year) Carpal tunnel 1991
--- OUTSIDE RECORDS SUMMARY | 2025-02-10 12:02 | XMS_ITS ---
Author Organization Galileo Guzman MD Address [address] [place] [phone] Care Team Providers Care Art Studio Teacher Name Role Phone Galileo Guzman Primary Care Provider [phone] REASON FOR VISIT Chest CT Scan due Problems Problem Type SNOMED Code ICD Code Onset Dates Problem Status W/U Status Risk Notes Problem Solitary nodule of lung (936028322) Lung nodule (R91.1) Active confirmed Encounters Encounter Location Date Provider Diagnosis Galileo Guzman MD [address] [place] [address] Drive [address] [place] [phone] 05/16/2024 Galileo Guzman Lung nodule R91.1 Assessments Encounter Date Diagnosis (ICD Code) Assessment Notes Treatment Notes Treatment Clinical Notes Section Notes 05/16/2024 Lung nodule (ICD-10 - R91.1) order made and put into the future order folder for . Plan Of Treatment Treatment Notes Assessment Notes Lung nodule order made and put i nto the future order folder for . Pending Test Test Name Order Date CT chest wo con 05/16/2024 Next Appt Details Provider Name:Galileo Rubi ier, 02/17/2025 11:00:00 AM, [address] [facility], [address] [facility], [place], [place], [phone], Progress Notes * Xenia CALERODOB: [birth year] (63 yo F)Acc No.[id number]:05/16/2024 Patient:?Towsley, Xenia :1960???Age:63 Y???Sex:Female Address:[address] [place] [address], [address] Subjective: * Chief Complaints: * ???Chest CT Scan due * Medical History:? * Surgical History:? * Hospitalization/Major Diagno stic Procedure:? * Medications:? Objective: Assessment: * Assessment: 1.?Lung nodule - R91.1? Plan: * Treatment: Notes: order made and put into the future order folder for .?? * Procedure Codes:? * true * Date:? Generated for Omar simental/Dede/eTmallysmitting on:?02/10/2025 12:01 PM EDT
--- OUTSIDE RECORDS SUMMARY | 2025-02-10 12:03 | XMS_ITS ---
Author Organization Galileo Guzman MD Address [address] [place] [address] [place] [phone] Care Team Providers Care Control Clerk Auditing Name Role Phone Galileo Guzman Primary Care Provider [phone] Allergies No Known Allergies REASON FOR VISIT 3 month/ CBACK CT SCAN LUNGS Encounters Encounter Location Date Provider Diagnosis Galileo Guzman MD [address] [place] [address] [address] [place] [phone] 05/17/2024 Galileo Guzman Plan Of Treatment Next Appt Details Provider Name:Galileo Rubi ier, 02/17/2025 11:00:00 AM, [address] [place] [address], Suite [facility], [place], [place], [phone], Progress Notes * Xenia CALERODOB: [birth year] (64 yo F)Acc No.[id number]:05/17/2024 Patient:?Xenia CALERO Provider:?Galileo Guzman MD :1960???Age:63 Y???Sex:Female D ate:05/17/2024 Address:[address] [place] [address] [facility] Subjective: * Chief Complaints: * ???1. 3 month/ CBACK CT SCAN LUNGS. * ROS:?General/Constitutional:?Denies?Chills.?Denies?Fatigue.?Denies?Fever.?Denies?Headache.?ENT:?Denies?Sore throat.?Respiratory:?Denies?Cough.?Denies?Shortness of breath at rest.?Denies?Shortness of breath with exertion.?Gastrointestinal:?Denies?Diarrhea.?Denies?Nausea.? * Medical History:?Colonoscopy 2012 done 2022 tubular adenoma/ repeat in 5 years. * Allergies:?N.K.D.A. Objective: * Vitals:? Assessment: Plan: * Treatment: * * The named appointment provid er may or may not be the originator of this progress note, and it is not deemed complete until electronically signed by the appointment provider. Sign off status: Pending * Provider:?Galileo Guzman MD Date:?0 05/17/2024 Generated for Omar simental/Dede/Praveenaitting on:?02/10/2025 12:02 PM EDT
--- OUTSIDE RECORDS SUMMARY | 2025-02-10 12:03 | XMS_ITS | Patient Health Record ---
Author Organization Galileo Guzman MD Address [address] [place], [place] [id number] Care Team Providers Care Livestock Farmworker Name Role Phone Galileo Guzman Primary Care Provider [phone] Allergies No Known Allergies Results Component Value Reference Range Notes CT soft tissue neck w con Reviewed date:04/12/2024 03:09:36 PM Interpretation: Performing Lab: Notes/Report: [facility] [address] [place] [address] Scan Report Signed Patient: Xenia Fajardo MR#: [id number] : 1960 Acct:[id number] Age/Sex: 63 / F ADM Date: 04/08/24 Loc: HO.CT Attending Dr: Yobani Noel Ordering Physician: Yobani Noel Date of Service: 04/08/24 Procedure(s): CT soft tissue neck w IV con Accession Number(s): [id number] cc: Galileo Guzman MD; Yobani Noel CT SOFT TISSUE NECK WITH CONTRAST CLINICAL INFORMATION: Lesion right base of tongue. COMPARISON: None available. TECHNIQUE: Following the intravenous administration of 100 mL of Omnipaque 350 intravenous contrast, helical imaging was performed in the axial plane with generation of coronal and sagittal reformatted images. This CT examination was performed using dose optimization techniques as appropriate, variously including the following: *Automated exposure control *Adjustment of mA and/or kV according to patient size (this includes techniques or standardized protocols for targeted exams where dose is matched to indication/reason for exam; i.e. extremities or head) *Use of iterative reconstruction technique FINDINGS: Mild asymmetric soft tissue fullness involving the right tongue base and possibly the right glossotonsillar sulcus, not well assessed given significant dental streak artifact obscuring these areas. If a lesion is seen clinically, a PET CT could be obtained for further assessment. There are nonpathologic size criteria lymph nodes throughout the suprahyoid and infrahyoid neck bilaterally that can also be assessed with PET. No additional superficial mucosal space lesions. Laryngeal structures are closely opposed in phonation and therefore difficult to assess. The parotid glands, the submandibular glands, and the thyroid gland are unremarkable. No retropharyngeal fluid collections. Imaged upper lungs are clear. Imaged upper mediastinum is unremarkable. There is multilevel cervical spondylosis which is severe at the C4-C5, C5-C6, and C6-C7 levels. A focus of gas within the left prevertebral soft tissues at C6 is most likely degenerative. Mild mucosal thickening within the left maxillary sinus. The remaining paranasal sinuses and the mastoid air cells are clear. The TMJs are unremarkable. Partially imaged intracranial compartment is unremarkable. CT/CT soft tissue neck w IV con IMPRESSION: Mild asymmetric soft tissue fullness involving the right tongue base and possibly the right glossotonsillar sulcus, not well assessed given significant dental streak artifact obscuring these areas. If a lesion is seen clinically, a PET CT could be obtained for further assessment. There are nonpathologic size criteria lymph nodes throughout the suprahyoid and infrahyoid neck bilaterally that can also be assessed with PET. Dictated By: Han Mcdaniel MD Signed By: <Electronically signed by Han Mcdaniel MD in OV> 04/08/24 1140 DD/ 1110 TD/TT: Upholstery Cutter: [address] [address] [address] Scan Report Signed Patient: Xenia Fajardo MR#: [id number] : 1960 Acct:[id number] Age/Sex: 63 / F ADM Date: 04/08/24 Loc: HO.CT Attending Dr: Yobani Noel Ordering Physician: Yobani Noel Date of Service: 04/08/24 Procedure(s): CT sof t tissue neck w IV con Accession Number(s): [id number] cc: Galileo Guzman MD; Yobani Noel CT SOFT TISSUE NECK WITH CONTRAST CLINICAL INFORMATION: Lesion right base of tongue. COMPARISON: None available. TECHNIQUE: Following the intravenous administration of 100 mL of Omnipaque 350 intravenous contrast , helical imaging was performed in the axial plane with generation of coronal and sagittal reformatted images. This CT examination was performed using dose optimization techniques as appropriate, various ly including the following: *Automated exposure control *Adjustment of mA and/or kV according to patient size (this includes techniques or standardized protocols for targeted exams where dose is matched to indication/reason for exam; i.e. extremities or head) *Use of iterative reconstruction technique FINDINGS: Mild asymmetric soft tissue fullness involving the right tongue base and possibly the rig ht glossotonsillar sulcus, not well assessed given significant dental streak artifact obscuring these areas. If a lesion is seen clinically, a PET CT could be obtained for further assessment. There are nonpatholo gic size criteria lymph nodes throughout the suprahyoid and infrahyoid neck bilaterally that can also be assessed with PET. No additional superficial mucosal space lesions. Laryngeal structures are closely opposed in phonation and therefore difficult to assess. The parotid glands, the submandibular glands, and the thyroid gland are unremarkable. No retropharyngeal fluid collections. Imaged upper lungs a re clear. Imaged upper mediastinum is unremarkable. There is multilevel cervical spondylosis which is severe at the C4-C5, C5-C6, and C6-C7 levels. A focus of gas within the left prevertebral soft tissues at C6 i s most likely degenerative. Mild mucosal thickening within the left maxillary sinus. The remaining paranasal sinuses and the mastoid air cell s are clear. The TMJs are unremarkable. Partially imaged intracranial compartment is unremarkable. CT/CT soft tissue neck w IV con IMPRESSION: Mild asymmetric soft tissue fullness involving the right tongue base and possibly the rig ht glossotonsillar sulcus, not well assessed given significant dental streak artifact obscuring these areas. If a lesion is seen clinically, a PET CT could be obtained for further assessment. There are nonpatholo gic size criteria lymph nodes throughout the suprahyoid and infrahyoid neck bilaterally that can also be assessed with PET. Dictated By: Han Mcdaniel MD Signed By: <Electronically signed by Han Mcdaniel MD in OV> 04/08/24 1140 DD/ 1110 TD/TT: Upholstery Cutter: MARTIN MAMMOGRAM DIGITAL BILATERAL SCREEN Reviewed date:05/16/2024 12:58:03 PM Interpretation:Negative Performing Lab: Notes/Report: Negative Complete Blood Count Auto Di ff (Not yet reviewed by provider) Interpretation: Performing Lab:[facility], [address] [place] [phone] Notes/Report: White Blood Count 5.3 4.8-10.8 X10*3/uL [...] NRBC Abs Auto 0.000 0.0-0.012 X10*3/uL Comprehensive [place]. Panel Fa st (Not yet reviewed by provider) Interpretation: Performing Lab:[facility], [address] [place] [phone] Notes/Report: Sodium 142 135-145 mmol/L Potassium 4.4 [...] yet reviewe d by provider) Interpretation: Performing Lab:[facility], [address] [place] [phone] Notes/Report: Triglycerides 49 <150 mg/dL Desirable Triglyceride: [...] (Not yet reviewed by provider) Interpretation: Performing Lab:[facility], [address] [place] [phone] Notes/Report: Urine, Clean Catch Color Urine Yellow Appearance Urine Clear PH 5.5 5.0-9.0 Glucose Urine UA Negative Negative mg/dL Urine Blood Negative Negative Specific [place] - Urine 1.025 1.005-1.025 Urine Protein Negative Neg-Trace mg/dL Urine Ketones Trace Negative mg/dL Nitrite Urine Negative Negative Leukocyte Esterase Urine Trace Negative RBC Urine 0-2 0-2 /HPF WBC Urine 0-5 0-5 /HPF Squamous Epithelial Cell Urine 3-5 0-2 /HPF Bacteria Urine None Seen None Seen Hyaline Casts Urine 0-2 0-2 /LPF Reason For Referral Reason lung cancer screenin g Diagnosis 1 Screening for lung c anc (Z12.2) Referral Organization Galileo Guzman MD Referring Provider First Name Galileo Referring Provider Last Name Thomas Referring Provider Speciality Internal M edicine Referred Provider ROMY GOLDMAN Referred Provider Specialty Thoracic Mitchell florencia General Notes Brandy Herring 03:00:26 PM EDT > [facility] referral form faxed, Brandy Herring 03/04/2024 09:40:36 AM EDT > was told being worked on, they will get back to me, Brandy Herring 03/08/2024 10:27:00 AM EDT > was told to refax to [facility] thoracic phone [phone] fax [phone], Brandy Herring 03/25/2024 09:09:29 AM EDT > patient is aware of appt Referral Priority Routine Referral Appointment Date 04/13/2024 Medications Medication SIG (Take, Route, Fr equency, Duration) Notes Start Date End Date Status Ibuprofen 800 MG TAKE 1 TABLET BY RAMSES TH THREE TIMES A DAY WITH FOOD OR MILK NEEDED FOR 30 DAYS for 30 Active Immunizations Vaccine Route Administration Date Status Comme nts SARS-COV-2 Moderna Unknown 02/19/2021 Administered SARS-COV-2 Moderna Unknown 03/20/2021 Administered Fluarix Quadrivalent Unknown 01/31/2022 Refused Social History Tobacco Use: Social History Observation Description Date Details (start date - stop date) Current Smoker NA - NA Tobacco Use/Smoking Question Answer Notes Patient is a current smoker How often do you smoke cigarettes? every day How soon after you wake up do you smoke your fir st cigarette? after 60 minutes Alcohol Screen Question Answer Notes Did you have a drink containing alcohol in the p ast year? No Points 0 Interpretation Negative Section Notes: Patient states vapes 3/4 of a cartridge a day Patient states vapes 3/4 of a cartridge a day Patient states vapes 1 of a cartridge a day Patient states vapes 1 of a cartridge a day Patient states vapes 1 of a cartridge a day Problems Problem Type SNOMED Code ICD Code Onset Dates Problem Status W/U Status Risk Notes Problem Solitary nodule of lung (269239160) Lung nodule (R91.1) Active confirmed Problem 907040550 History of smoking (Z87.891) Active confirmed Problem Mitral valve disorder (23172785) Moderate mitral regurgitation (I34.0) Active confirmed Problem 88625750 Vaping nicotine dependence, tobacco product (F17.290) Active confirmed Vital Signs Blood pressure diastolic 60 mm Hg 02/15/2024 Height 63 in 02/15/2024 Blood pressure systolic 118 mm Hg 02/15/2024 Weight 167 lbs 02/15/2024 BMI 29.58 kg/m2 02/15/2024 Encounters Encounter Location Date Provider Diagnosis Galileo Guzman MD [address] [place] [address] Drive [address] [place] [id number] 02/10/2025 Galileo Guzman Blood tests for routine general physical examination Z00.00 Galileo Guzman MD [address] [place] [address] Drive [address] [place] [id number] 02/15/2024 Galileo Guzman Moderate mitral regurgitation I34.0 ; Annual physical exam Z00.00 ; Screening for lung cancer Z12.2 ; Sensation of lump in throat R09.A2 and Depression screening Z13.31 Galileo Guzman MD [address] [place] [address] Drive [address] [place] [id number] 05/16/2024 Galileo Guzman Lung nodule R91.1 Assessments Encounter Date Diagnosis (ICD Code) Assessment Notes Treatment Notes Treatment Clinical Notes Section Notes 02/10/2025 Blood tests for routine general physical examination (ICD-10 - Z00.00) 02/15/2024 Moderate mitral regurgitation (ICD-10 - I34.0) 02/15/2024 Annual physical exam (ICD-10 - Z00.00) labs reviewed and discussed with patient 02/15/2024 Screening for lung cancer (ICD-10 - Z12.2) referral to [facility] lung cancer screening 05/16/2024 Lung nodule (ICD-10 - R91.1) order made and put into the future order folder for . 02/15/2024 Sensation of lump in throat (ICD-10 - R09.A2) referral to dr noel- info given patient ana be making her own ted 02/15/2024 Depression screening (ICD-10 - Z13.31) negative screen Plan Of Treatment Pending Test Test Name Order Date Complete Blood Count Auto Diff 5 Comprehensive [place]. Panel Fast 5 Lipid Panel 02/10/2025 CA echo transthoracic complete 1 CA echo transthoracic complete 2 CT chest wo con 05/16/2024 US thyroid 10/30/2023 UA ClnCatch+Micro w/rflx Cult 02/10/2025 Next Appt Details Provider Name:Galileo Rubi ier, 02/17/2025 11:00:00 AM, [address] [facility], [address], [place], [place], [phone], Insurance Providers Payer Name Payer Address Payer Phone Subscriber Number Group Number Insured Name Patient Relationship to Insured Coverage Start Date Coverage End Date JERSON WHITT [id number] AFUA Perdomo [phone] [id number] Xenia Fajardo Self - patient is the insured Medical (General) History Medical History History ICD Code colonoscopy 2012 done 2022 tubular adeno ma/ repeat in 5 years
--- OUTSIDE RECORDS SUMMARY | 2025-02-10 12:03 | XMS_ITS | Data Portability ---
Author Organization [place] [facility], Allergy Address [address] [place] [phone] Care Team Providers Care Cement Conveyor Operator Name Role Phone KENROY HARDY Primary Care Provider Assessment No assessment recorded. Plan of Treatment Reminders Order Date Submit Date Provider Last Modified By Organization Details Last Modified Time Details Appointments None recorded. Lab None recorded. Referral None recorded. Procedures None recorded. Surgeries None recorded. Imaging None recorded. Medication Orders omeprazole 20 mg capsule,del ayed release [address] [place] [address]/Pharmacy #[id number], [address] [place], [address], 11:25:02 Patient TargetsNo targets recorded. Patient InstructionsNo instructions recorded. Reason for Referral None Reported. Results Created Date Observation Date Name Description Value Unit Range Abnormal Flag Note LastModifiedBy Organization Detail LastModifiedTime 05/10/20 24 04/08/2024 CT, neck, soft tissu e, w/ contr ast No observ ation record ed. [email or web address] Not Available 04/30 13:35:50 05/10/20 24 04/26/2024 PET, skull base to mid-t high No observ ation record ed. [email or web address] Not Available 04/30 13:50:15 Result Notes None recorded. Problems Name Problem SNOMED Code Status Onset Date Resolution Date Notes Provider Name and Address Organization Details Recorded Time Abnormal findings on diagnostic imaging of skull and head 574828144 Active 2023 JUAN MANUEL Aj MD [address] [facility] [address], [place], [address] , [place] [facility] 11:14:57 Feeling of lump in throat 771042200 Active 2023 JUAN MANUEL Aj MD [address] [place] [address], [place], [phone], [place] [facility] [place] 4 11:15:02 Gastroesophage al reflux disease without esophagitis 149761239 Active 2023 JUAN MANUEL Aj MD [address] [place] [address], [place], [phone], [place] [facility] 11:23:48 Problem Notes None recorded. Procedures Surgical History Date Name Laterality Status Provider Name and Address Organization Details Recorded Time 09/06/2024 FFL_RE completed JUAN MANUEL HERNANDEZ MD [address] [place] [address],[place] [address], [place], [phone], [place] [facility] 09/06/2024 08:49:41 05/10/2024 FFL_RE completed JUAN MANUEL HERNANDEZ MD [address] [place] [address], [place], [address], [place] [facility] 05/10/2024 11:23:43 Imaging Results Imaging Date Name Status LastModified by Organiz ation Details LastModified Time 04/08/2024 CT, neck, soft tissue, w/ contrast completed Information not available 05/10/2024 13:35:50 04/26/2024 PET, skull base to mid-thigh completed Information not available 05/10/2024 13:50:15 Procedure Notes None recorded. Medical Equipment None Reported. Medications Name Sig Start Date Stop Date Status Note LastModified by Organization Details LastModified Time ibuprofen 800 mg tablet TAKE 1 TABLET BY MOUTH THREE TIMES A DAY WITH FOOD OR MILK NEEDED FOR 30 DAYS active Not Available Not Available No t Available omeprazole 20 mg capsule,duncan yed release TAKE 1 CAPSULE BY MOUTH EVERY DAY 024 active Not Available Not Available Not Avai lable Vitals Date Recorded Body height Body mass index (BMI) Body weight Provider Name and Address Organization Details Last Updated DateTime 09/06/2024 160.02 cm 28.9 kg/m2 76233.56 g Myla Canada [place] - [facility] 09/06/2024 08:46:44 Date Recorded Body height Body mass index (BMI) Body weight Provider Name and Address Organization Details Last Updated DateTime 05/10/2024 160.02 cm 28.9 kg/m2 86484.56 g Myla [place] [facility] 05/10/2024 10:47:11 Social History None recorded. Functional Status None recorded. Mental Status None recorded. Family History Nothing Reported. Medical History No medical history recorded. Gynecological HistoryNo gynecological history recorded. Obstetrics History GPAL:G 0 P 0 0 0 0 Past Encounters Encounter ID Performer Location Encounter Start Date Encounter Closed Date Diagnosis/Indication Diagnosis SNOMED-CT Code Diagnosis ICD10 Code Diagnosis Note [id number] JUAN MANUEL HERNANDEZ MD [facility] [address] [phone] 05/10/2024 10:10:47 05/10/2024 11:26:36 Abnormal findings on diagnostic imaging of skull and head 515955589 R93.0 No exam correlate with CT or PET findings (which conflict between studies). Feeling of lump in throat 560670310 R09.89 No tumors on FFL. No abnormalit y of BOT or arytenoid on laryngosoc py. Gastroesop hageal reflux disease without esophagitis 019323645 K21.9 Exam was benign. Laryngosco py showed cobbleston ing. I feel the symptoms are likely due to extra esophageal reflux disease. We will begin a six-week trial of omeprazole which was sent to their pharmacy. We will plan a follow up in 3-4 months to reassess. will plan repeat laryngosoc py at next visit. [id number] JUAN MANUEL HERNANDEZ MD [facility] [address] [phone] 09/06/2024 08:27:33 09/06/2024 08:55:25 Abnormal findings on diagnostic imaging of skull and head 144073345 R93.0 No exam correlate with CT or PET findings (which conflict between studies). Feeling of lump in throat 887870676 R09.89 No tumors on FFL. No abnormalit y of BOT or arytenoid on laryngosoc py. Gastroesop hageal reflux disease without esophagitis 724026920 K21.9 Exam was benign. Laryngosco py showed cobbleston ing. Her symptoms have improved. Exam is normal including laryngosco py. I gave reassuranc e. I recommend she call for follow up if her throat concerns resolve and persist for a few weeks. Health Concerns Section Related Observation LastModified by Organization Detai ls LastModified Time None Recorded Concern Status LastModified by Organization Details LastModified Time None Recorded Advance Directives Directive None Recorded Payers Encounter Date Sequence Insurance Name Policy Number Policy Castañeda Covered Member ID Castañeda Member ID Guarantor Name 05/10/2024 1 Yovigo [id number] [place] [id number] 09/06/2024 1 Yovigo [id number] [place]atu [id number] Xenia [facility] Notes Date Note Type Note Provider Name and Address Organization Details Recorded Time 05/10/2024 text/html She presented to Dr. Noel with 8 months of globus sensation. Currently she has no pain but occasionally she has some pain which radiates to her right ear. It is a burning sensation. Dr. Noel ordered a CT neck with contrast at [facility] 04/08/24 showed mild asymmetric soft tissue fullness of the right tongue base and glossotonsillar sulcus. PET was recommended due to limitation with dental artifact. PET 04/26/24 showed increased metabolic activity of the right arytenoid (SUV 3.4). There was no activity seen in the BOT. She vapes tobacco. She denies trouble swallowing. No voice problems. No difficulty breathing. She has occasional heartburn. JUAN MANUEL HERNANDEZ MD [address] [place] [address], [phone], [place] - [facility] 05/10/2024 11:25:51 09/06/2024 text/html She presented to Dr. Noel with 8 months of globus sensation. It has resolved. She did not tolerate omeprazole but did take some supplements to help with reflux and cut back on citrus. Dr. Noel ordered a CT neck with contrast at [facility] 04/08/24 showed mild asymmetric soft tissue fullness of the right tongue base and glossotonsillar sulcus. PET was recommended due to limitation with dental artifact. PET 04/26/24 showed increased metabolic activity of the right arytenoid (SUV 3.4). There was no activity seen in the BOT. She vapes tobacco. She denies trouble swallowing. No voice problems. No difficulty breathing. JUAN MANUEL HERNANDEZ MD [address] [place] [address], [phone], [place] [facility] 09/06/2024 08:58:22 OBGyn Episode No OBEpisode recorded.
== END 2025-02-10 10:34 | disposition home or self-care (01) ==
LOC: HO.LNP 10:33
PROVIDERS: Visit Provider Internal Medicine
DX: Z00.00 Encounter for general adult medical examination without abnormal findings (principal); Z13.220 Encounter for screening for lipoid disorders; Z13.0 Encounter for screening for diseases of the blood and blood-forming organs and certain disorders involving the immune mechanism
CPT/HCPCS: 80053; 80061; 81001; 85025

== ENCOUNTER 2025-05-17 11:21 | Outpatient (REF) | payer OTHER, SELFPAY ==
--- OUTSIDE RECORDS SUMMARY | 2025-04-21 07:27 | XMS_ITS ---
Author Organization Galileo Guzman MD Address [address] [place] [phone] Care Team Providers Care Jumpbasting Lining Baster Name Role Phone Galileo Guzman Primary Care Provider [phone] REASON FOR VISIT US appt Encounters Encounter Location Date Provider Diagnosis Galileo Guzman MD [address] [place] [address] [place] [phone] 04/21/2025 Galileo Guzman Plan Of Treatment Next Appt Details Provider Name:Galileo Rubi ier, 05/23/2025 11:15:00 AM, [address] [place] [address], [address], [phone], Provider Name:Galileo taylor, 02/12/2026 08:00:00 AM, [address] [place] [address], [address], [phone], Provider Name:Galileo taylor, 02/19/2026 08:30:00 AM, [address] [place] [address], [address], [phone], Progress Notes * Xenia CALERODOB: [birth year] (64 yo F)Acc No.[id number]:04/21/2025 Patient: Xenia GAFFNEY :1960 A ge:64 Y S ex:Female Address:[address] [place] [address], [address] * true * Date: Generated for Omar simental/Dede/Josh on: 0 05/17/2025 01:16 PM EDT
--- NOTE | ~2025-05-17 | US_ITS ---
EXAMINATION: Ultrasound extremity, limited, nonvascular. CLINICAL INFORMATION: Right upper extremity paresthesia. TECHNIQUE: Real-time ultrasound of the region of concern in the right upper extremity at the wrist area with a linear transducer using grayscale and color Doppler technique. COMPARISON: None FINDINGS: No solid lesion. No fluid collection. No increased vascularity. US/US Extremity Nonvas Limited RT IMPRESSION: Negative exam. Electronically signed by: Moises Gould MD 05/17/2025 12:19 PM EDT
== END 2025-05-17 11:22 | disposition home or self-care (01) ==
LOC: HO.US 11:21
PROVIDERS: PCP Internal Medicine; Visit Provider Internal Medicine
DX: R20.2 Paresthesia of skin (principal)
CPT/HCPCS: 76882

== ENCOUNTER → 2025-05-17 11:24 | Outpatient (BNV) | payer OTHER, SELFPAY | PROVIDERS: PCP Internal Medicine; Visit Provider Radiology Diagnostic Radiology | DX: R20.2 Paresthesia of skin (principal) | CPT/HCPCS: 76882 ==

== ENCOUNTER 2025-08-08 13:53 | Outpatient (AMB) | payer OTHER, SELFPAY ==
--- OUTSIDE RECORDS SUMMARY | 2025-04-20 06:45 | XMS_ITS ---
Author Organization Galileo Guzman MD Address [address] [place] [phone] Care Team Providers Care Dry Pan Operator Name Role Phone Galileo Guzman Primary Care [...] Status Risk Notes Problem Skin sensation disturbance (32056575) Arm paresthesia , right (R20.2) Active confirmed Vital Signs Blood pressure systolic 122 mm Hg 04/20/20 25 Blood pressure diastolic 60 mm Hg 025 Height 63 in 04/20/2025 Weight 171 lbs 04/20/2025 BMI 30.29 kg/m2 04/20/2025 Encounters Encounter Location Date Provider Diagnosis Galileo Guzman MD [address] [place] [phone] 04/20/2025 Galileo Guzman Arm paresthesia, right R20.2 [...] Follow Up: 4 Weeks, Reason: Provider Name:Galileo Rbui ier, 09/18/2025 11:00:00 AM, [address], [address], [place], [phone], Provider Name:Galileo Rubi ier, 02/12/2026 08:00:00 AM, [address] [facility], [address], [place], [phone], Provider Name:Galileo Rubi ier, 02/19/2026 08:30:00 AM, [address] [facility] [address], [address], [place], [phone], Progress Notes * Xenia CALERODOB: [birth year] (64 yo F)Acc No.[id number]:04/20/2025 Progress Notes Patient: Danni READCL, Xenia Provider: Millie Guzman MD :1960 A ge:64 Y S ex:Female Date:04/20/2025 Address:[address] [place], [place] [phone] Subjective: * Chief Complaints: * 4 week [...] 04/20/2025 Generated for Omar simental/Dede/Praveenaitting on: 0 08/08/2025 04:34 PM EDT History and Physical Notes * [...]
--- OUTSIDE RECORDS SUMMARY | 2025-04-20 07:49 | XMS_ITS ---
Author Organization Galileo Guzman MD Address [address] [place] [phone] Care Team Providers Care Assistant Health Educator Name Role Phone Galileo Guzman Primary Care Provider [phone] chest is due . Encounters Encounter Location Date Provider Diagnosis Galileo Guzman MD [address] [place] [address] [place] [phone] 04/20/2025 Galileo Guzman Plan Of Treatment Next Appt Details Provider Name:Galileo taylor, 09/18/2025 11:00:00 AM, [address] [place] [address], [address], [phone], Provider Name:Galileo taylor, 02/12/2026 08:00:00 AM, [address] [place] [address], [phone], Provider Name:Galileo taylor, 02/19/2026 08:30:00 AM, [address] [place] [address], [address], [phone], Progress Notes * Xenia CALERODOB: [birth year] (64 yo F)Acc No.[id number]:04/20/2025 Patient: Xenia GAFFNEY :1960 A ge:64 Y S ex:Female Address:[address] [place] [address], [address] * true * Date: Generated for Omar simental/Dede/Praveenaitting on: 0 08/08/2025 04:34 PM EDT
--- OUTSIDE RECORDS SUMMARY | 2025-04-21 07:27 | XMS_ITS ---
Author Organization Galileo Guzman MD Address [address] [place] [phone] Care Team Providers Care Marketing Intern Name Role Phone Galileo Guzman Primary Care Provider REASON FOR VISIT US appt Encounters Encounter Location Date Provider Diagnosis Galileo Guzman MD [address] [place] [address] [place] [phone] 04/21/2025 Galileo Guzman Plan Of Treatment Next Appt Details Provider Name:Galileo taylor, 09/18/2025 11:00:00 AM, [address] [place] [address], [address], [phone], Provider Name:Galileo taylor, 02/12/2026 08:00:00 AM, [address] [place] [address], [address], [phone], Provider Name:Galileo taylor, 02/19/2026 08:30:00 AM, [address] [place] [address], [phone], Progress Notes * Xenia CALERODOB: [birth year] (64 yo F)Acc No.[id number]:04/21/2025 Patient: Xenia GAFFNEY :1960 A ge:64 Y S ex:Female Address:[address] [place] [address], [phone] * true * Date: Generated for Omar simental/Dede/Josh on: 0 08/08/2025 04:33 PM EDT
--- OUTSIDE RECORDS SUMMARY | 2025-05-23 07:15 | XMS_ITS ---
Author Organization Galileo Guzman MD Address [address] [place] [phone] Care Team Providers Care Insurance Follow Up Rep Name Role Phone Galileo Guzman Primary Care Provider [phone] Allergies No Known Allergies REASON FOR VISIT [...] Date Provider Diagnosis Galileo Guzman MD [address] [place] [address] [place] [phone] 05/23/2025 Galileo Guzman Arm paresthesia, right R20.2 [...] Reason: Provider Name:Galileo taylor, 09/18/2025 11:00:00 AM, [address] [place] [address], Suite [facility], [place], [place], [phone], Provider Name:Galileo Rubi ier, 02/12/2026 08:00:00 AM, [address], [address], [place], [place], [phone], Provider Name:Galileo Rubi ier, 02/19/2026 08:30:00 AM, [address], [address], [place], [place], [phone], Progress Notes * Xenia CALERODOB: [birth year] (64 yo F)Acc No.[id number]:05/23/2025 Progress Notes Patient: Xenia GAFFNEY Provider: Millie Guzman MD :1960 A ge:64 Y S ex:Female Date:05/23/2025 Address:[address] [place], [place] [phone] Subjective: * Chief Complaints: * 4 week [...] 0 05/23/2025 Generated for Omar simental/Dede/Ludwinransmitting on: 0 08/08/2025 04:33 PM EDT History and Physical Notes * [...]
--- OUTSIDE RECORDS SUMMARY | 2025-07-25 07:00 | XMS_ITS ---
Author Organization Galileo Guzman MD Address [address] [place], [place] [phone] Care Team Providers Care Machine Maintenance Name Role Phone Galileo Guzman Primary Care [...] Herring 0 07/25/2025 11:14:36 AM >referral info faxed, Brandy Herring 08/01/2025 03:28:23 PM >was told they would be calling the patient to book her appt Referral Priority Routine REASON FOR VISIT 2 month Medications Medication [...] 07/25/2025 weight is down 2 pouinds sin 6-24-25 Encounters Encounter Location Date Provider Diagnosis Galileo Guzman MD [address] [place], [place] [phone] 07/25/2025 Galileo Guzman Arm paresthesia, right R20.2 [...] Reason: Provider Name:Galileo taylor, 09/18/2025 11:00:00 AM, [address] [place] [address], [address] [place] [address], [phone], Provider Name:Galileo taylor, 02/12/2026 08:00:00 AM, [address] [place] [address], [address] [place] [address], [phone], Provider Name:Galileo taylor, 02/19/2026 08:30:00 AM, [address] [place] [address], Suite [facility], [place], [place], [phone], Progress Notes * Xenia CALERODOB: [birth year] (64 yo F)Acc No.[id number]:07/25/2025 Progress Notes Patient: Xenia GAFFNEY Provider: Millie Guzman MD :1960 A ge:64 Y S ex:Female Date:07/25/2025 Address:[address] [place], [place] [phone] Subjective: * Chief Complaints: * 2 month [...] MD Date: 0 07/25/2025 Generated for Omar simental/Dede/Praveenaitting on: 0 08/08/2025 04:33 PM EDT History [...]
--- NOTE | 2025-08-08 14:20 | MHC.OFFVIS ---
Intake Visit Reasons: R Arm Paresthesia Allergies No Known Allergies Allergy (Verified 09/24/23 10:33) HPI Comments Details: The patient is a 64-year-old female presenting with numbness and pain in the left forearm after a blood draw in January. During the needle insertion, she experienced acute pain radiating down the arm. Following this, she developed persistent numbness on the forearm's top, particularly in the left arm and right elbow area. The numbness does not affect her strength, which she confirms by the ability to squeeze with no weakness reported. She describes additional symptoms as shooting pains from the elbow down to the wrist, with heightened discomfort upon pressure. The pain's emergence immediately post-procedure moody a clear timeline and causality from the blood draw incident. 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 The symptoms suggest possible nerve damage that could remain for up to a year without resolution. [facility] Medical History Kidney stones Surgical History History of carpal tunnel release Hx of colonoscopy Social History Patient Tobacco Use Status: Current everyday Tobacco user Tobacco use type: Smokeless Tobacco Review of Systems Const Details: - Neurological: Reports numbness and shooting pain in the left arm after a blood draw. - Musculoskeletal: Reports pain consistent with tendinitis, worsened by pressure; denies weakness. Assessment & Plan Assessment & Plan (1) Numbness: Code(s): R20.0 - Anesthesia of skin Category: Medical Plan Impression: R arm pain and numbness with non focal exam Rec: EMG/NCS Orders: Orders NE nerve conduction velocity Today R20.0 - Anesthesia of skin NE electromyogram (EMG) Today R20.0 - Anesthesia of skin Coding Level of Care Code New Pt Level 3 (15955) Diagnoses Numbness R20.0
--- OUTSIDE RECORDS SUMMARY | 2025-08-08 16:34 | XMS_ITS | Patient Health Record ---
Author Organization Galileo Guzman MD Address [address] [place], [place] [phone] Care Team Providers Care Nuclear Plant Instrument Technician Name Role Phone Galileo Guzman Primary Care Provider [phone] Allergies No Known Allergies Results Component Value Reference Range Notes Complete Blood Count Auto Di ff Reviewed date:02/10/2025 12:18:16 PM Interpretation: Performing Lab:[facility], [address] [place] [phone] Notes/Report: White Blood Count 5.3 4.8-10.8 X10*3/uL [...] NRBC Abs Auto 0.000 0.0-0.012 X10*3/uL Comprehensive [place]. Panel Fa st Reviewed date:02/10/2025 12:18:33 PM Interpretation: Performing Lab:[address] [phone] Notes/Report: Sodium 142 135-145 mmol/L Potassium 4.4 [...] Alkaline Phosphatase 69 39-117 U/L Lipid Panel Reviewed date:02/10/2025 12:17:08 PM Interpretation: Performing Lab:[address] [phone] Notes/Report: Triglycerides 49 <150 mg/dL Desirable Triglyceride: [...] disease. UA ClnCatch+Micro w/rflx Cul t Reviewed date:02/10/2025 05:09:40 PM Interpretation: Performing Lab:[facility], [address] [place] [phone] Notes/Report: Urine, Clean Catch Color Urine Yellow Appearance Urine Clear PH 5.5 5.0-9.0 Glucose Urine UA Negative Negative mg/dL Urine Blood Negative Negative Specific [place] - Urine 1.025 1.005-1.025 Urine Protein Negative Neg-Trace mg/dL Urine Ketones Trace Negative mg/dL Nitrite Urine Negative Negative Leukocyte Esterase Urine Trace Negative RBC Urine 0-2 0-2 /HPF WBC Urine 0-5 0-5 /HPF Squamous Epithelial Cell Urine 3-5 0-2 /HPF Bacteria Urine None Seen None Seen Hyaline Casts Urine 0-2 0-2 /LPF US Extremity Nonvas Limited RT Reviewed date:05/17/2025 07:29:13 PM Interpretation: Performing Lab: Notes/Report: [address] [address] Ultrasound Report Signed Patient: Xenia Fajardo MR#: [id number] : 1960 Acct:[id number] Age/Sex: 64 / F ADM Date: 05/17/25 Loc: HO.US Attending Dr: Galileo Guzman MD Ordering Physician: Galileo Guzman MD Date of Service: 05/17/25 Procedure(s): US Extremity Nonvas Limited RT Accession Number(s): [id number] cc: Galileo Guzman MD EXAMINATION: Ultrasound extremity, limited, nonvascular. CLINICAL INFORMATION: Right upper extremity paresthesia. TECHNIQUE: Real-time ultrasound of the region of concern in the right upper extremity at the wrist area with a linear transducer using grayscale and color Doppler technique. COMPARISON: None FINDINGS: No solid lesion. No fluid collection. No increased vascularity. US/US Extremity Nonvas Limited RT IMPRESSION: Negative exam. Electronically signed by: Moises Gould MD 05/17/2025 12:19 PM EDT RP Dictated By: Moises Manzo MD Signed By: <Electronically signed by Moises Chinchilla MD in OV> 05/17/25 1219 DD/ 1130 TD/TT: 05/17/25 1135 Pediatric Orthodontist: [place] [address] Ultrasound Report Signed Patient: Xenia Fajardo MR#: [id number] : 1960 Acct:[id number] Age/Sex: 64 / F ADM Date: 05/17/25 Loc: HO.US Attending Dr: Galileo Guzman MD Ordering Physician: Galileo Guzman MD Date of Service: 05/17/25 Procedure(s): US Extremity Nonvas Limited RT Accession Number(s): [id number] cc: Galileo Guzman MD EXAMINATION: Ultrasound extremity , limited, nonvascular. CLINICAL INFORMATION: Right upper extremit y paresthesia. TECHNIQUE: Real-time ultrasound of the region of concern in the right upper extremity at the wri st area with a linear transducer using grayscale and color Doppler technique. COMPARISON: None FINDINGS: No solid lesion. No fluid collection. No increased vascularity. US/US Extremity Nonvas Limited RT IMPRESSION: Negative exam. Electronically noman d by: Moises Gould MD 05/17/2025 12:19 PM EDT RP Dictated By: Moises Yen MD Signed By: <Electronically signed by Moises Chinchilla MD in OV> 05/17/25 1219 DD/ 1130 TD/TT: 05/17/25 1135 Pediatric Orthodontist: Reason For Referral Reason Arm paresthesia righ [...] to book her appt Referral Priority Routine Medications Medication SIG (Take, Route, Fr equency, [...] Problem Status W/U Status Risk Notes Problem Neuropathy (627692388) Neuropathy (G62.9) Active confirmed Problem Solitary nodule of lung (696169867) Lung nodule (R91.1) Active confirmed Problem Dilatation of Aorta (82719198) Aortic dilatation (I77.819) Active confirmed Problem 044799023 History of smoking (Z87.891) Active confirmed Problem Mitral valve disorder (39812721) Moderate mitral regurgitation (I34.0) Active confirmed Problem Skin sensation disturbance (65978059) Arm paresthesia, right (R20.2) Active confirmed Problem 83245973 Vaping nicotine dependence, tobacco product (F17.290) Active confirmed Vital Signs Blood pressure diastolic 80 mm Hg 07/25/2025 emily ght is down 2 pouinds since 05-23-25 Height 63 in 07/25/2025 weight is down 2 pouinds since 05-23-25 Blood pressure systolic 138 mm Hg 07/25/2025 weig ht is down 2 pouinds since 05-23-25 Weight 168 lbs 07/25/2025 weight is down 2 pouinds since 05-23-25 BMI 29.76 kg/m2 07/25/2025 weight is down 2 pouinds since 05-23-25 Encounters Encounter Location Date Provider Diagnosis Galileo Guzman MD [address] [place] [phone] 02/10/2025 Galileo Guzman Blood tests for routine general physical examination Z00.00 Galileo Guzman MD [address] [place] [address] [phone] 03/23/2025 Galileo Guzman Neuropathy G62.9 Galileo Guzman MD [address] [place] [address] Drive [address] [place] [id number] 02/17/2025 Galileo Guzman Aortic dilatation I77.819 ; Annual physical exam Z00.00 ; Neuropathy G62.9 and Depression screening Z13.31 Galileo Guzman MD [address] [place] [id number] 04/20/2025 Galileo Guzman Arm paresthesia, right R20.2 Galileo Guzman MD [address] [place] [address] [phone] 05/23/2025 Galileo Guzman Arm paresthesia, right R20.2 Galileo Guzman MD [address] [place] [address] [address] [place] [id number] 07/25/2025 Galileo Guzman Arm paresthesia, right R20.2 Galileo Guzman MD [address] [place] [address] [id number] 04/20/2025 Galileo Guzman MD [address] [place] [address] [id number] 04/21/2025 Galileo Guzman Assessments Encounter Date Diagnosis (ICD Code) Assessment Notes Treatment Notes Treatment Clinical Notes Section Notes 02/10/2025 Blood tests for routine general physical examination (ICD-10 - Z00.00) 03/23/2025 Neuropathy (ICD-10 - G62.9) seems that a nerve was injured by a blood draw. will observe as there would not seem to be a surgical need and at times it goes away the pain 02/17/2025 Aortic dilatation (ICD-10 - I77.819) is going to get a repeat cat scan in one year. if they don't she should call me and i will order 02/17/2025 Annual physical exam (ICD-10 - Z00.00) labs reviewed and discussed with patient 04/20/2025 Arm paresthesia, right (ICD-10 - R20.2) pending diagnostic testing 05/23/2025 Arm paresthesia, right (ICD-10 - R20.2) discussed recent diagnostic study with patient and negative findings, observe 07/25/2025 Arm paresthesia, right (ICD-10 - R20.2) referral to dr shipman 02/17/2025 Neuropathy (ICD-10 - G62.9) a nerve might have been hit by the needle and should get better, will bserve 02/17/2025 Depression screening (ICD-10 - Z13.31) negative screen 02/17/2025 Other need pet scan results and office notes of dr montalvo ent/ REQUEST FAXED TO HIM @ [facility] Plan Of Treatment Pending Test Test Name Order Date US SOFT TISSUE 04/20/2025 CA echo transthoracic complete 1 CA echo transthoracic complete 2 CT chest wo con 05/16/2024 US thyroid 10/30/2023 Next Appt Details Provider Name:Galileo taylor, 09/18/2025 11:00:00 AM, [address], [address], [place], [place], [phone], Provider Name:Galileo taylor, 02/12/2026 08:00:00 AM, [address] [place] [address] Drive, [address], [place], [place], [phone], Provider Name:Galileo taylor, 02/19/2026 08:30:00 AM, [address], [address], [place], [phone], Insurance Providers Payer Name Payer Address Payer Phone Subscriber Number Group Number Insured Name Patient Relationship to Insured Coverage Start Date Coverage End Date JERSON WHITT [id number] AFUA Perdom[place] [id number] Xenia Fajardo Self - patient is the insured Medical (General) History Medical History History ICD Code colonoscopy 2012 done 2022 tubular adeno ma/ repeat in 5 years
--- OUTSIDE RECORDS SUMMARY | 2025-08-08 16:34 | XMS_ITS | Patient Health Record ---
Author Organization [facility] Address [address] [place] [address] Care Team Providers Care Temporary Receptionist Name Role Phone Thomas CASILLAS, Galileo Primary Care Provider Mansoor Fregoso [phone] Allergies No Known Allergies Reason For Referral [...] Problem Status W/U Status Risk Notes Problem 247425808 Colon cancer screening (Z12.11) Active confirmed Problem Diverticular disease of colon (703090210) Diverticulosis of large intestine without perforation or abscess without bleeding (K57.30) Active confirmed Problem 301463179446960 Preprocedural examination (Z01.818) Active confirmed Plan Of Treatment Pending Test Test Name Order Date Pathology 09/25/2023 Future Test Test Name Order Date COLONOSCOPY 06/30/2023 Insurance Providers Payer Name Payer Address Payer Phone Subscriber Number Group Number Insured Name Patient Relationship to Insured Coverage Start Date Coverage End Date [employer] [address] [place] [phone] [id number] LILIYA PIERSON Self - patient is the insured Medical (General) History Medical History History ICD Code Kidney stones Negative screening colonoscopy in 2012 [address] [facility] [address] Gutierrez Denies AL,DM,CVA,Lung disease,renal dise ase Surgical History Surgery Date(Month/Year) Carpal tunnel 1991
== END 2025-08-08 14:29 | disposition home or self-care (01) ==
LOC: HO.HSM 13:54
PROVIDERS: PCP Internal Medicine; Visit Provider Psychiatry & Neurology Neurology
DX: R20.0 Anesthesia of skin (principal)
CPT/HCPCS: 99203

== ENCOUNTER 2025-08-14 12:52 | Outpatient (REF) | payer OTHER, SELFPAY ==
--- OUTSIDE RECORDS SUMMARY | 2025-04-20 06:45 | XMS_ITS ---
Author Organization Galileo Guzman MD Address [address] [place] [phone] Care Team Providers Care Mock Up Maker Name Role Phone Galileo Guzman Primary Care Provider Allergies No Known Allergies REASON FOR VISIT 4 week f/u, right lower arm is still burning pins and needles and shooting pain x 2 months after a blood draw Medications Medication SIG (Take, Route, Fr equency, Duration) Notes Start Date End Date Status Ibuprofen 800 MG TAKE 1 TABLET BY RAMSES TH THREE TIMES A DAY WITH FOOD OR MILK NEEDED FOR 30 DAYS for 30 Active Problems Problem Type SNOMED Code ICD Code Onset Dates Problem Status W/U Status Risk Notes Problem Skin sensation disturbance (18458627) Arm paresthesia , right (R20.2) Active confirmed Vital Signs Blood pressure systolic 122 mm Hg 04/20/20 25 Blood pressure diastolic 60 mm Hg 025 Height 63 in 04/20/2025 Weight 171 lbs 04/20/2025 BMI 30.29 kg/m2 04/20/2025 Encounters Encounter Location Date Provider Diagnosis Galileo Guzman MD [address] [place] [phone] 04/20/2025 Galileo Guzman Arm paresthesia, right R20.2 Assessments Encounter Date Diagnosis (ICD Code) Assessment Notes Treatment Notes Treatment Clinical Notes Section Notes 04/20/2025 Arm paresthesia, right (ICD-10 - R20.2) pending diagnostic testing Plan Of Treatment Treatment Notes Assessment Notes Arm paresthesia, right pending diagnosti c testing Pending Test Test Name Order Date US SOFT TISSUE 04/20/2025 Next Appt Details Follow Up: 4 Weeks, Reason: Provider Name:Galileo Rubi ier, 09/18/2025 11:00:00 AM, [address], [address], [place], [phone], Provider Name:Galileo Rubi ier, 02/12/2026 08:00:00 AM, [address] [facility], [address], [place], [phone], Provider Name:Galileo Rubi ier, 02/19/2026 08:30:00 AM, [address], [address], [place], [phone], Progress Notes * Xenia CALERODOB: [birth year] (64 yo F)Acc No.[id number]:04/20/2025 Progress Notes Patient: Danni READCL, Xenia Provider: Millie Guzman MD :1960 A ge:64 Y S ex:Female Date:04/20/2025 Address:[address] [place], [place] [phone] Subjective: * Chief Complaints: * 4 week f/uRight lower arm is still burning pins and needles and shooting pain x 2 months after a blood draw * HPI: S ymptom(s): patient is a 64 yo female here for 4 week follow up visit. * ROS: G eneral/Constitutional: Denies C hills. D enies F atigue. D enies F ever. D enies H eadache. E NT: Denies S ore throat. R espiratory: Denies C ough. D enies S hortness of breath at rest. D enies S hortness of breath with exertion. G astrointestinal: Denies D iarrhea. D enies N ausea. * Medical History: * Surgical History: * Hospitalization/Major Diagno stic Procedure: * Medications: T akingIbuprofen 800 MG Tablet TAKE 1 TABLET BY MOUTH THREE TIMES A DAY WITH FOOD OR MILK NEEDED FOR 30 DAYS Medication List reviewed and reconciled with the patientTaking Ibuprofen 800 MG Tablet TAKE 1 TABLET BY MOUTH THREE TIMES A DAY WITH FOOD OR MILK NEEDED FOR 30 DAYS Medication List reviewed and reconciled with the patient * Allergies: N .K.D.A.yes[Allergies Verified] Objective: * Vitals: H t: 63, Wt: 171, BMI:30.29, BP:122/60, Wt-k.57. * Examination: G eneral Examination: GENERAL APPEARANCE: a lert, well hydrated, in no distress.? EXTREMITIES: a bnormal rt forearm with tenderness to palpation and prominence of the vein which does not appear thrombosed.. Assessment: * Assessment: 1. A rm paresthesia, right - R20.2 (Primary) Plan: * Treatment: * Procedure Codes: * Follow Up: 4 Weeks * * Sign off status: Completed true * Provider: Millie Guzman MD Date: 0 04/20/2025 Generated for Omar simental/Dede/Praveenaitting on: 0 08/14/2025 05:42 PM EDT History and Physical Notes * HPI (History of Present Illness) Category Sub-Category Detail Notes Category Not es Symptom(s) patient is a 64 yo female here for 4 week follow up visit Examination Category Sub-Category Detail Notes Category Not es General Examination GENERAL APPEARANCE: alert, w ell hydrated, in no distress EXTREMITIES: abnormal rt forearm with tenderness to palpation and prominence of the vein which does not appear thrombosed.
--- OUTSIDE RECORDS SUMMARY | 2025-04-20 07:49 | XMS_ITS ---
Author Organization Galileo Guzman MD Address [address] [place] [phone] Care Team Providers Care Hospital Chief Executive Officer Name Role Phone Galileo Guzman Primary Care Provider REASON FOR VISIT CT chest is due . Encounters Encounter Location Date Provider Diagnosis Galileo Guzman MD [address] [place] [address] [place] [phone] 04/20/2025 Galileo Guzman Plan Of Treatment Next Appt Details Provider Name:Galileo taylor, 09/18/2025 11:00:00 AM, [address] [place] [address], [address], [phone], Provider Name:Galileo taylor, 02/12/2026 08:00:00 AM, [address] [place] [address], [phone], Provider Name:Galileo taylor, 02/19/2026 08:30:00 AM, [address] [place] [address], [address], [phone], Progress Notes * Xenia CALERODOB: [birth year] (64 yo F)Acc No.[id number]:04/20/2025 Patient: Xenia GAFFNEY :1960 A ge:64 Y S ex:Female Address:[address] [place] [address], [phone] * true * Date: Generated for Omar simental/Dede/Praveenaitting on: 0 08/14/2025 05:42 PM EDT
--- OUTSIDE RECORDS SUMMARY | 2025-04-21 07:27 | XMS_ITS ---
Author Organization Galileo Guzman MD Address [address] [place] [phone] Care Team Providers Care City Collector Name Role Phone Galileo Guzman Primary Care Provider REASON FOR VISIT US appt Encounters Encounter Location Date Provider Diagnosis Galileo Guzman MD [address] [place] [address] [place] [phone] 04/21/2025 Galileo Guzman Plan Of Treatment Next Appt Details Provider Name:Galileo taylor, 09/18/2025 11:00:00 AM, [address] [place] [address], [address], [phone], Provider Name:Galileo taylor, 02/12/2026 08:00:00 AM, [address] [place] [address], [address], [phone], Provider Name:Galileo taylor, 02/19/2026 08:30:00 AM, [address] [place] [address], [phone], Progress Notes * Xenia CALERODOB: [birth year] (64 yo F)Acc No.[id number]:04/21/2025 Patient: Xenia GAFFNEY :1960 A ge:64 Y S ex:Female Address:[address] [place] [address], [address] * true * Date: Generated for Omar simental/Dede/Josh on: 0 08/14/2025 05:42 PM EDT
--- OUTSIDE RECORDS SUMMARY | 2025-05-23 07:15 | XMS_ITS ---
Author Organization Galileo Guzman MD Address [address] [place] [phone] Care Team Providers Care Ice Cream Vault Worker Name Role Phone Galileo Guzman Primary [...] Location Date Provider Diagnosis Galileo Guzman MD [address] [place] [address] [place] [phone] 05/23/2025 Galileo Guzman Arm paresthesia, right R20.2 [...] Reason: Provider Name:Galileo taylor, 09/18/2025 11:00:00 AM, [address] [place] [address], Suite [facility], [place], [place], [phone], Provider Name:Galileo Rubi ier, 02/12/2026 08:00:00 AM, [address], [address], [place], [place], [phone], Provider Name:Galileo Rubi ier, 02/19/2026 08:30:00 AM, [address], [address], [place], [place], [phone], Progress Notes * Xenia CALERODOB: [birth year] (64 yo F)Acc No.[id number]:05/23/2025 Progress Notes Patient: Xenia GAFFNEY Provider: Millie Guzman MD :1960 A ge:64 Y S ex:Female Date:05/23/2025 Address:[address] [place], [place] [phone] Subjective: * Chief Complaints: * 4 week [...] 05/23/2025 Generated for Omar simental/Dede/Ludwinransmitting on: 0 08/14/2025 05:42 PM EDT History [...]
--- OUTSIDE RECORDS SUMMARY | 2025-07-25 07:00 | XMS_ITS ---
Author Organization Galileo Guzman MD Address [address] [place], [place] [phone] Care Team Providers Care Boot And Shoe Repairman Name Role Phone Galileo Guzman Primary Care Provider Allergies No Known Allergies Reason For Referral Reason Arm paresthesia righ t Diagnosis 1 Arm paresthesia, rig ht (R20.2) Referral Organization Galileo Guzman MD Referring Provider First Name Galileo Referring Provider Last Name Thomas Referring Provider Speciality Internal M edicine Referred Provider Bernice Shipman Referred Provider Specialty Neurology General Notes Brandy Herring 0 07/25/2025 11:14:36 AM >referral info faxedNima Annette 08/01/2025 03:28:23 PM >was told they would be calling the patient to book her appt, Brandy Herring 08/10/2025 01:49:31 PM > EMG will be down in their office ( rm 402 ) on 08-14-2025 Referral Priority Routine Referral Appointment Date 08/08/2025 REASON FOR VISIT 2 month Medications Medication SIG (Take, Route, Fr equency, Duration) Notes Start Date End Date Status Ibuprofen 800 MG TAKE 1 TABLET BY RAMSES TH THREE TIMES A DAY WITH FOOD OR MILK NEEDED FOR 30 DAYS for 30 Active Vital Signs Blood pressure systolic 138 mm Hg 07/25/20 25 Blood pressure diastolic 80 mm Hg 025 Height 63 in 07/25/2025 Weight 168 lbs 07/25/2025 BMI 29.76 kg/m2 07/25/2025 weight is down 2 pouinds sin ce 6-24-25 Encounters Encounter Location Date Provider Diagnosis Galileo Guzman MD [address] [place] [address] [place] [phone] 07/25/2025 Galileo Guzman Arm paresthesia, right R20.2 Assessments Encounter Date Diagnosis (ICD Code) Assessment Notes Treatment Notes Treatment Clinical Notes Section Notes 07/25/2025 Arm paresthesia, right (ICD-10 - R20.2) referral to dr shipman Plan Of Treatment Treatment Notes Assessment Notes Arm paresthesia, right referral to dr pete amezquita Referrals Referral Date Details 07/25/2025 07/25/2025, Arm pare sthesia right, Bernice Shipman Next Appt Details Follow Up: 2 Months, Reason: Provider Name:Galileo taylor, 09/18/2025 11:00:00 AM, [address] [place] [address], [address] [place] [address], [phone], Provider Name:Galileo taylor, 02/12/2026 08:00:00 AM, [address] [place] [address], [place] [address], [place], [place], [phone], Provider Name:Galileo taylor, 02/19/2026 08:30:00 AM, [address] [place] [address], [place] [address], [place], [place], [phone], Progress Notes * Xenia CALERODOB: [birth year] (64 yo F)Acc No.[id number]:07/25/2025 Progress Notes Patient: Asha GAFFNEYhleen Provider: Millie Guzman MD :1960 A ge:64 Y S ex:Female Date:07/25/2025 Address:[address] [place], [place] [phone] Subjective: * Chief Complaints: * 2 month * HPI: S ymptom(s): patient is a 64 yo female here for 2 month follow up visit/ no change in pain. * ROS: G eneral/Constitutional: Denies C hills. [...] Objective: * Vitals: H t: 63, Wt: 168, BMI:29.76, BP:138/80, Wt-k.2. weight is down 2 pouinds since 05-23-25. * Examination: G eneral Examination: GENERAL APPEARANCE: a lert, well hydrated, in no distress.? Assessment: * Assessment: 1. A rm paresthesia, right - R20.2 (Primary) Plan: * Treatment: * Procedure Codes: * Follow Up: 2 Months * * Sign off status: Completed true * Provider: Millie Guzman MD Date: 0 07/25/2025 Generated for Omar simental/Dede/eTransmitting on: 0 08/14/2025 05:42 PM EDT History and Physical Notes * HPI (History of Present Illness) Category Sub-Category Detail Notes Category Not es Symptom(s) patient is a 64 yo female here for 2 month follow up visit/ no change in pain Examination Category Sub-Category Detail Notes Category Not es General Examination GENERAL APPEARANCE: alert, w ell hydrated, in no distress Consultation Request Notes Referral Date Referring Provider Referred Provider Not es 07/25/2025 Galileo Guzman Mohammad Arm p aresthesia right
--- NOTE | 2025-08-14 13:48 | EMG_ITS ---
Chief complaint: Arm numbness Reason for referral: right arm numbness anesthesia of skin Referred by:?Dr Lira Procedure done: Right upper extremity NCV/EMG Right median and ulnar motor and sensory studies were performed right radial sensory and median and lateral antecubital brachial sensory studies were performed an EMG needle examination was performed. Impression: This is an unremarkable study with no evidence of entrapment neuropathy or a proximal lesion. MTDD
--- OUTSIDE RECORDS SUMMARY | 2025-08-14 17:42 | XMS_ITS | Encounter Summary ---
Author Organization [facility] Address [address] [place] [address] Care Team Providers Care Silver Cleaner Name Role Phone Rudy Hunter Primary Care Provider Unavailabl e Encounter Details Date Type Department Care Team Description 05/28/2016 Operations Administrator Report Medical Records [address] [place] [address] Rudy Hunter Social History Tobacco Use Types Packs/Day Years Used Date Smoking Tobacco: Every Day Cigarettes 0.5 Smokeless Tobacco: Never Alcohol Use Standard Drinks/Week Comments Yes 0 (1 standard drink = 0.6 oz pur e alcohol) 6 drinks per yr Alcohol Habits Answer Date Recorded How often do you have a drink containing alcohol ? Never 11/05/2020 How many drinks containing a lcohol do you have on a typical day when you are drinking? Not asked How often do you have six or more drinks on one occasion? Not asked Sex Assigned at Date Recorded Not on file documented as of this encounter Plan of Treatment Not on file documented as of this encounter Visit Diagnoses Not on filedocumented in this encounter Care Teams Silver Cleaner Relationship Specialty Start Date End Date Rudy Hunter PCP - General 11/28/08 documented as of this encounter
--- OUTSIDE RECORDS SUMMARY | 2025-08-14 17:42 | XMS_ITS | Patient Health Record ---
Author Organization Galileo Guzman MD Address [address] [place], [place] [address] Care Team Providers Care Software Development Leader Name Role Phone Galileo Guzman Primary Care Provider Allergies No Known Allergies Results Component Value Reference Range Notes Complete Blood Count Auto Di ff Reviewed date:02/10/2025 12:18:16 PM Interpretation: Performing Lab:[facility], [address] [place] [phone] Notes/Report: White Blood Count 5.3 4.8-10.8 X10*3/uL [...] NRBC Abs Auto 0.000 0.0-0.012 X10*3/uL Comprehensive [place]. Panel Fa st Reviewed date:02/10/2025 12:18:33 PM Interpretation: Performing Lab:[address] [address] Notes/Report: Sodium 142 135-145 mmol/L Potassium 4.4 [...] Panel Reviewed date:02/10/2025 12:17:08 PM Interpretation: Performing Lab:[address] [address] Notes/Report: Triglycerides 49 <150 mg/dL Desirable Triglyceride: [...] t Reviewed date:02/10/2025 05:09:40 PM Interpretation: Performing Lab:[facility], [address] [place] [phone] Notes/Report: Urine, Clean Catch Color Urine Yellow Appearance Urine Clear PH 5.5 5.0-9.0 Glucose Urine UA Negative Negative mg/dL Urine Blood Negative Negative Specific [place] - Urine 1.025 1.005-1.025 Urine Protein Negative [...] date:05/17/2025 07:29:13 PM Interpretation: Performing Lab: Notes/Report: [address] [address] Ultrasound Report Signed Patient: Xenia Fajardo MR#: [id number] : 1960 Acct:[id number] Age/Sex: 64 / F ADM Date: 05/17/25 Loc: HO.US Attending Dr: Galileo Guzman MD Ordering Physician: Galileo Guzman MD Date of Service: 05/17/25 Procedure(s): US Extremity Nonvas Limited RT Accession Number(s): [id number] cc: Galileo Guzman MD EXAMINATION: Ultrasound extremity, [...] 05/17/25 1219 DD/ 1130 TD/TT: 05/17/25 1135 [employer]obile Parts Assembler: [place] [id number] Ultrasound Report Signed Patient: Xenia Fajardo MR#: [id number] : 1960 Acct:[id number] Age/Sex: 64 / F ADM Date: 05/17/25 Loc: HO.US Attending Dr: Galileo Guzman MD Ordering Physician: Galileo Guzman MD Date of Service: 05/17/25 Procedure(s): US Extremity Nonvas Limited RT Accession Number(s): [id number] cc: Galileo Guzman MD EXAMINATION: Ultrasound extremity [...] 05/17/25 1219 DD/ 1130 TD/TT: 05/17/25 1135 Automobile Parts Assembler: Reason For Referral Reason Arm paresthesia righ t Diagnosis 1 Arm paresthesia, rig ht (R20.2) Referral Organization Galileo Guzman MD Referring Provider First Name Galileo Referring Provider Last Name Thomas Referring Provider Speciality Internal M edicine Referred Provider Bernice Shipman Referred Provider Specialty Neurology General Notes Nima Brandy 0 07/25/2025 11:14:36 AM >referral info faxed, Brandy Herring 08/01/2025 03:28:23 PM >was told they would be calling the patient to book her appt, Brandy Herring 08/10/2025 01:49:31 PM > EMG will be down in their office ( rm [phone] ) on 08-14-2025 Referral Priority Routine Referral Appointment Date 08/08/2025 Medications Medication SIG (Take, Route, Fr equency, [...] Status W/U Status Risk Notes Problem Neuropathy (194394556) Neuropathy (G62.9) Active confirmed Problem Solitary nodule of lung (073498252) Lung nodule (R91.1) Active confirmed Problem Dilatation of Aorta (60225710) Aortic dilatation (I77.819) Active confirmed Problem 457248063 History of smoking (Z87.891) Active confirmed Problem Mitral valve disorder (00385100) Moderate mitral regurgitation (I34.0) Active confirmed Problem Skin sensation disturbance (30513621) Arm paresthesia, right (R20.2) Active confirmed Problem 10055019 Vaping nicotine dependence, tobacco product (F17.290) Active [...] Galileo Guzman MD [address] [place] [id number] 02/10/2025 Galileo Guzman Blood tests for routine general physical examination Z00.00 [address] Guz[address] [place] [id number] 03/23/2025 Galileo Guzman Neuropathy G62.9 Galileo Guzman MD [address] [place] [address] [id number] 02/17/2025 Galileo Guzman Aortic dilatation I77.819 ; Annual physical exam Z00.00 ; Neuropathy G62.9 and Depression screening Z13.31 Galileo Guzman MD [address] [place] [id number] 04/20/2025 Galileo Guzman Arm paresthesia, right R20.2 Galileo Guzman MD [address] [place] [address] [address] [place] [id number] 05/23/2025 Galileo Guzman Arm paresthesia, right R20.2 Galileo Guzman MD [address] [place] [address] [id number] 07/25/2025 Galileo Guzman Arm paresthesia, right R20.2 Galileo Guzman MD [address] [place] [address] [id number] 04/20/2025 Galileo Guzman MD [address] [place] [address] Drive [address] [place], [place] [id number] 04/21/2025 Galileo Guzman Assessments Encounter Date Diagnosis [...] thyroid 10/30/2023 Next Appt Details Provider Name:Galileo Rubi ier, 09/18/2025 11:00:00 AM, [address], [address], [place], [place], [phone], Provider Name:Galileo taylor, 02/12/2026 08:00:00 AM, [address], [address], [place], [place], [phone], Provider Name:Galileo Rubi ier, 02/19/2026 08:30:00 AM, [address], [address], [place], [phone], Insurance Providers Payer Name Payer Address Payer Phone Subscriber Number Group Number Insured Name Patient Relationship to Insured Coverage Start Date Coverage End Date JERSON WHITT [id number] AFUA [place] [id number] Xenia Fajardo Self - patient is the insured Medical (General) History Medical History History ICD Code colonoscopy 2012 done 2022 tubular adeno ma/ repeat in 5 years
--- OUTSIDE RECORDS SUMMARY | 2025-08-14 17:43 | XMS_ITS | Clinical Summary ---
Author Organization [facility] Address [address] [place] [address] Care Team Providers Care Consumer Education Specialist Name Role Phone Rudy Hunter Primary Care Provider Unavailabl e Allergies No known active allergies Medications Medication Sig Dispensed Refills Start Date End Date Status IBUPROFEN 800 MG OR TABS 1 TABLET 3 TIMES DAILY 0 Active GREEN TEA (CAMILLIA SINENSIS) 150 MG OR CAPS 2 x's daily 0 Active Active Problems Problem Noted Date Family history of breast cancer in [place] 06/27/2014 Cervical high risk human papillomavirus (HPV) DNA test positive 04/25/2008 Overview: Squamous atypia only on colpo Bx, 05/07. Family History Medical History Relation Name Comments CAD Father CA Breast Maternal Grandmother 70S CA Breast Mother 50 CA Breast Sister 45 probably had ne g BrCA Relation Name Status Comments Father Alive Maternal Grandmother 70S (Age 75) Br east Cancer Mother 50 (Age 50) Breast Can cer Sister 45 Alive Social History Tobacco Use Types Packs/Day Years Used Date Smoking Tobacco: Every Day Cigarettes 0.5 43 Started: 1972 Vapor Smokeless Tobacco: Never Alcohol Use Standard Drinks/Week Comments No 0 (1 standard drink = 0.6 oz pur e alcohol) Alcohol Habits Answer Date Recorded How often do you have a drink containing alcohol ? Never 11/05/2020 How many drinks containing a lcohol do you have on a typical day when you are drinking? Not asked How often do you have six or more drinks on one occasion? Not asked Sex Assigned at Date Recorded Not on file Last Filed Vital Signs Vital Sign Reading Time Taken Comments Blood Pressure 110/70 11/05/2020 9:39 AM EST Pulse 83 11/05/2020 9:39 AM EST Temperature 36.9 C (98.4 F) 08/20/2016 4:24 PM EDT Respiratory Rate 18 11/05/2020 9:39 AM EST Oxygen Saturation 95% 12/29/2014 10:42 AM EST Inhaled Oxygen Concentration - - Weight 75.4 kg (166 lb 3.2 oz) 11/05/2020 9:39 A M EST Height 162.6 cm (5' 4 ) 09/15/2018 1:51 PM EDT Body Mass Index 28.53 09/15/2018 1:51 PM EDT Plan of Treatment Health Maintenance Due Date Last Done Comments Covid-19 Vaccine (#1) 04/28/1961 DTAP/TDAP/TD (1 - Tdap) 1979 SHINGLES VACCINE (1 of 2) 2010 CHOLESTEROL SCREENING 03/31/2011 03/31/2006 MAMMOGRAM 09/12/2021 09/12/2020, 12/31, 01/15/2017, Additional history exists TOBACCO CHECK/ADVISE 11/05/2022 11/05/2020 (Completed), 09/15/2018 (Completed) BMI CHECK/ADVISE 11/30/2024 11/05/2020, 05/2020 (Completed), 09/15/2018, Additional history exists COLON CANCER SCREENING 12/29/2024 12/29/2014 INFLUENZA (#1) 2025 11/05/2020 (Refused) PNEUMOCOCCAL VACCINE FOR HIG H RISK PATIENTS (#1) 2025 CERVICAL CANCER SCREENING 11/05/20252019, 07/15/2016, 06/08/2013, Additional history exists HEPATITIS C SCREENING Completed 09/15/2018 Insurance Payer Benefit Plan / Group Subscriber ID Effective Dates Phone Address [facility] PPO $25 [place] [id number] 2018[place] [address] PPO Fee-for- Service Care Teams Consumer Education Specialist Relationship Specialty Start Date End Date Rudy Hunter PCP - General 11/28/08
--- OUTSIDE RECORDS SUMMARY | 2025-08-14 17:43 | XMS_ITS | Encounter Summary ---
Author Organization [facility] Address [address] [place] [address] Care Team Providers Care Senior Research Engineer Name Role Phone Rudy Hunter Primary Care Provider Unavailabl e Encounter Details Date Type Department Care Team Description 08/11/2016 Transfer Records Medical Records [address] [place] [address] Abstract, Provider Social History Tobacco Use Types Packs/Day Years Used Date Smoking Tobacco: Every Day Cigarettes 0.5 43 Smokeless Tobacco: Never Alcohol Use Standard Drinks/Week Comments Yes 0 (1 standard drink = 0.6 oz pur e alcohol) rare Alcohol Habits Answer Date Recorded How often [...] on filedocumented in this encounter Care Teams Senior Research Engineer Relationship Specialty Start Date End Date Rudy Hunter PCP - General 11/28/08 documented as of this encounter
--- OUTSIDE RECORDS SUMMARY | 2025-08-14 17:43 | XMS_ITS | Patient Health Record ---
Author Organization [facility] Address [address] [place] [address] Care Team Providers Care Transplant Coordinator Name Role Phone Thomas CASILLAS, Galileo Primary Care Provider Mansoor Fregoso [phone] Allergies No Known Allergies Reason For Referral [...] Problem Status W/U Status Risk Notes Problem 496343576 Colon cancer screening (Z12.11) Active confirmed Problem Diverticular disease of colon (412977806) Diverticulosis of large intestine without perforation or abscess without bleeding (K57.30) Active confirmed Problem 566771321847894 Preprocedural examination (Z01.818) Active confirmed Plan Of Treatment Pending Test Test Name Order Date Pathology 09/25/2023 Future Test Test Name Order Date COLONOSCOPY 06/30/2023 Insurance Providers Payer Name Payer Address Payer Phone Subscriber Number Group Number Insured Name Patient Relationship to Insured Coverage Start Date Coverage End Date CIG[employer]-G WH [address] [facility] [place] [address] [id number] LILIYA PIERSON Self - patient is the insured Medical (General) History Medical History History ICD Code Kidney stones Negative screening colonoscopy in 2012 w [facility] Dr. Gutierrez Denies [place],DM,CVA,Lung disease,renal dise ase Surgical History Surgery Date(Month/Year) Carpal tunnel 1991
== END 2025-08-14 12:53 | disposition home or self-care (01) ==
LOC: HO.NEURO 12:52
PROVIDERS: PCP Internal Medicine; Visit Provider Psychiatry & Neurology Neurology
DX: R20.0 Anesthesia of skin (principal)
CPT/HCPCS: 95886; 95911

== ENCOUNTER → 2025-08-14 13:48 | Outpatient (BNV) | payer OTHER, SELFPAY | PROVIDERS: PCP Internal Medicine; Visit Provider Psychiatry & Neurology Neurology | DX: R20.0 Anesthesia of skin (principal) | CPT/HCPCS: 95886; 95910 ==

== ENCOUNTER 2025-09-05 14:21 | Outpatient (AMB) | payer OTHER, SELFPAY ==
--- OUTSIDE RECORDS SUMMARY | 2025-04-20 06:45 | XMS_ITS ---
Author Organization Galileo Guzman MD Address [address] [place] [phone] Care Team Providers Care Agricultural Sales Representative Name Role Phone Galileo Guzman Primary Care [...] Status Risk Notes Problem Skin sensation disturbance ([id number]) Arm paresthesia , right (R20.2) Active confirmed Vital Signs Blood pressure systolic 122 mm Hg 04/20/20 25 Blood pressure diastolic 60 mm Hg 025 Height 63 in 04/20/2025 Weight 171 lbs 04/20/2025 BMI 30.29 kg/m2 04/20/2025 Encounters Encounter Location Date Provider Diagnosis Galileo Guzman MD [address] [place] [phone] 04/20/2025 Galileo Guzman Arm paresthesia, right R20.2 [...] 11:00:00 AM, [address], [address], [place], [phone], Provider Name:Galileo Rubi ier, 02/12/2026 08:00:00 AM, [address] [facility], [address], [place], [phone], Provider Name:Galileo Rubi ier, 02/19/2026 08:30:00 AM, [address] [facility] [address], [address], [place], [phone], Progress Notes * Xenia CALERODOB: [birth year] (64 yo F)Acc No.[id number]:04/20/2025 Progress Notes Patient: Danni READCL, Xenia Provider: Millie Guzman MD :1960 A ge:64 Y S ex:Female Date:04/20/2025 Address:[address] [place], [place] [phone] Subjective: * Chief Complaints: * 4 week [...] 0 04/20/2025 Generated for Omar simental/Dede/Praveenaitting on: 1 05:43 PM EDT History and Physical Notes * [...]
--- OUTSIDE RECORDS SUMMARY | 2025-04-20 07:49 | XMS_ITS ---
Author Organization Galileo Guzman MD Address [address] [place] [phone] Care Team Providers Care Patient Registration Representative Name Role Phone Galileo Guzman Primary Care Provider REASON FOR VISIT CT chest is due . Encounters Encounter Location Date Provider Diagnosis Galileo Guzman MD [address] [place] [address] [place] [phone] 04/20/2025 Galileo Guzman Plan Of Treatment Next Appt Details Provider Name:Galileo taylor, 09/18/2025 11:00:00 AM, [address] [place] [address], [address], [phone], Provider Name:Galileo taylor, 02/12/2026 08:00:00 AM, [address] [place] [address], [phone], Provider Name:Galileo taylor, 02/19/2026 08:30:00 AM, [address] [place] [address], [address], [phone], Progress Notes * Xenia CALERODOB: [birth year] (64 yo F)Acc No.[id number]:04/20/2025 Patient: Xenia GAFFNEY :1960 A ge:64 Y S ex:Female Address:[address] [place] [address], [phone] * true * Date: Generated for Omar simental/Dede/Josh on: 05:43 PM EDT
--- OUTSIDE RECORDS SUMMARY | 2025-04-21 07:27 | XMS_ITS ---
Author Organization Galileo Guzman MD Address [address] [place] [phone] Care Team Providers Care Hog Handler Name Role Phone Galileo Guzman Primary Care Provider REASON FOR VISIT US appt Encounters Encounter Location Date Provider Diagnosis Galileo Guzman MD [address] [place] [address] [place] [phone] 04/21/2025 Galileo Guzman Plan Of Treatment Next Appt Details Provider Name:Galileo taylor, 09/18/2025 11:00:00 AM, [address] [place] [address], [address], [phone], Provider Name:Galileo taylor, 02/12/2026 08:00:00 AM, [address] [place] [address], [address], [phone], Provider Name:Galileo taylor, 02/19/2026 08:30:00 AM, [address] [place] [address], [phone], Progress Notes * Xenia CALERODOB: [birth year] (64 yo F)Acc No.[id number]:04/21/2025 Patient: Xenia GAFFNEY :1960 A ge:64 Y S ex:Female Address:[address] [place] [address], [address] * true * Date: Generated for Omar simental/Dede/Josh on: 1 05:42 PM EDT
--- OUTSIDE RECORDS SUMMARY | 2025-05-23 07:15 | XMS_ITS ---
Author Organization Galileo Guzman MD Address [address] [place] [phone] Care Team Providers Care Stem Dryer Maintainer Name Role Phone Galileo Guzman Primary Care Provider [phone] Allergies No Known Allergies REASON FOR VISIT 4 week Medications Medication SIG (Take, Route, Fr equency, Duration) Notes Start Date End Date Status Ibuprofen 800 MG TAKE 1 TABLET BY RAMSES TH THREE TIMES A DAY WITH FOOD OR MILK NEEDED FOR 30 DAYS for 30 Active Vital Signs Blood pressure systolic 122 mm Hg 05/23/20 25 Blood pressure diastolic 66 mm Hg 025 Height 63 in 05/23/2025 Weight 170 lbs 05/23/2025 BMI 30.11 kg/m2 05/23/2025 Encounters Encounter Location Date Provider Diagnosis Galileo Guzman MD [address] [place] [address] [place] [phone] 05/23/2025 Galileo Guzman Arm paresthesia, right R20.2 Assessments Encounter Date Diagnosis (ICD Code) Assessment Notes Treatment Notes Treatment Clinical Notes Section Notes 05/23/2025 Arm paresthesia, right (ICD-10 - R20.2) discussed recent diagnostic study with patient and negative findings, observe Plan Of Treatment Treatment Notes Assessment Notes Arm paresthesia, right discussed recent diagnostic study with patient and negative findings, observe Next Appt Details Follow Up: 2 Months, Reason: Provider Name:Galileo taylor, 09/18/2025 11:00:00 AM, [address] [place] [address], Suite [facility], [place], [place], [phone], Provider Name:Galileo Rubi ier, 02/12/2026 08:00:00 AM, [address], [address], [place], [place], [phone], Provider Name:Galileo Rubi ier, 02/19/2026 08:30:00 AM, [address], [address], [place], [place], [phone], Progress Notes * Xenia CALERODOB: [birth year] (64 yo F)Acc No.[id number]:05/23/2025 Progress Notes Patient: Xenia GAFFNEY Provider: Millie Guzman MD :1960 A ge:64 Y S ex:Female Date:05/23/2025 Address:[address] [place], [place] [phone] Subjective: * Chief Complaints: * 4 week * HPI: S ymptom(s): patient is a 64 yo female here for 4 week follow up visit and review of recent testing/ still numb and still with some pain and pins and needles. * ROS: G eneral/Constitutional: Denies C hills. [...] Objective: * Vitals: H t: 63, Wt: 170, BMI:30.11, BP:122/66, Wt-k.11. * Examination: G eneral Examination: GENERAL APPEARANCE: a lert, well hydrated, in no distress.? EXTREMITIES: h as still some pain on palpation to the arm us negative. Assessment: * Assessment: 1. A rm paresthesia, right - R20.2 (Primary) Plan: * Treatment: * Procedure Codes: * Follow Up: 2 Months * * Sign off status: Completed true * Provider: Millie Guzman MD Date: 0 05/23/2025 Generated for Omar simental/Dede/Ludwinransmitting on: 1 05:42 PM EDT History and Physical Notes * HPI (History of Present Illness) Category Sub-Category Detail Notes Category Not es Symptom(s) patient is a 64 yo female here for 4 week follow up visit and review of recent testing/ still numb and still with some pain and pins and needles Examination Category Sub-Category Detail Notes Category Not es General Examination GENERAL APPEARANCE: alert, w ell hydrated, in no distress EXTREMITIES: has still some pain on palpation to the arm us negative
--- OUTSIDE RECORDS SUMMARY | 2025-07-25 07:00 | XMS_ITS ---
Author Organization Galileo Guzman MD Address [address] [place], [place] [phone] Care Team Providers Care Ore Mixer Name Role Phone Galileo Guzman Primary Care [...] Date Provider Diagnosis Galileo Guzman MD [address] [place] [address] [place] [phone] 07/25/2025 Galileo Guzman Arm paresthesia, right R20.2 [...] Provider Name:Galileo taylor, 09/18/2025 11:00:00 AM, [address] [place] [address], [address] [place] [address], [phone], Provider Name:Galileo taylor, 02/12/2026 08:00:00 AM, [address] [place] [address], [place] [address], [place], [place], [phone], Provider Name:Galileo taylor, 02/19/2026 08:30:00 AM, [address] [place] [address], [place] [address], [place], [place], [phone], Progress Notes * Xenia CALERODOB: [birth year] (64 yo F)Acc No.[id number]:07/25/2025 Progress Notes Patient: Asha GAFFNEYhleen Provider: Millie Guzman MD :1960 A ge:64 Y S ex:Female Date:07/25/2025 Address:[address] [place], [place] [phone] Subjective: * Chief Complaints: * 2 month [...] 0 07/25/2025 Generated for Omar simental/Dede/eTransmitting on: 1 05:42 PM EDT History and [...]
--- NOTE | 2025-09-05 14:33 | MHC.OFFVIS ---
Intake Visit Reasons: Results Allergies No Known Allergies Allergy (Verified 09/24/23 10:33) HPI Comments Details: 64-year-old female presenting with numbness and pain in the right forearm after a blood draw in January. During the needle insertion, she experienced acute pain radiating down the arm. Following this, she developed persistent numbness on the forearm's top, particularly in the left arm and right elbow area. The numbness does not affect her strength, which she confirms by the ability to squeeze with no weakness reported. [facility] Medical History (Updated 09/05/25 @ 14:43 by Heber Lira MD) Numbness Kidney stones Surgical History History of carpal tunnel release Hx of colonoscopy Social History Patient Tobacco Use Status: Current everyday Tobacco user Tobacco use type: Smokeless Tobacco Review of Systems Const Details: Numbness on mental surface of right forearm and sensitivity. She also complain of swelling and pain in that area. Physical Exam Neuro Other: Mental Status: Alert and oriented to person, place, and time. Normal attention. Normal spontaneous speech, fluency, and comprehension. No obvious issues with mood and memory. Affect is appropriate. Cranial Nerves: CN II: Visual branham full to confrontation, visual acuity intact. CN III, IV, : Pupils equal, round, reactive to light and accommodation. Extraocular movements are normal. CN V: Facial sensation is normal. CN VII: Facial movements symmetrical. CN VIII: Hearing intact to bedside conversation is normal. CN IX, X: Palate elevates symmetrically. CN XI: Shoulder shrug and head turn symmetrical. CN XII: Tongue midline without atrophy or fasciculations. There was mild area of less sensation on ventral surface of right forearm. Right forearm musculature is slightly larger than left. Right thumbnail is also slightly larger than left. Extrapyramidal: Full facial expressions and blinking. No rigidity. Movements are appropriate with no tremor or abnormality. Speech: Normal; no dysarthria or tremor. Assessment & Plan Assessment & Plan (1) Numbness: Comment: EMG/NCS R arm in Sep at [facility]: WNL except medial antecubital brachial amplitude is about 1/2 of the lateral one Code(s): R20.0 - Anesthesia of skin Category: Medical Plan Impression and recommendations: Though her EMG nerve conduction study parameters were falling with a normal range, in light of her symptom of numbness on ventral surface of right forearm, an areas supplied by medial anti cubital brachial cutaneous, I see that there is difference of amplitude. Medial anti cubital brachial sensory amplitude is about half of the lateral, though both are still with a normal range. This might be mild injury to medial antecubital brachial sensory nerve. This may result in numbness and some hypersensitivity. It would not explain the relative larger size of her right forearm in comparison to lift. This I believe is probably genetic based as even her right nail was slightly larger than left. At this time no further intervention was needed. I expect this problem of numbness to slowly dissipate but maybe not completely. Coding Level of Care Code Est Pt Level 4 (94184) Diagnoses Numbness R20.0
--- OUTSIDE RECORDS SUMMARY | 2025-09-05 17:42 | XMS_ITS | Data Portability ---
Author Organization [place] [facility], Allergy Address [address] [address] Care Team Providers Care [facility] Attendant Name Role Phone KENROY HARDY Primary Care Provider Assessment No assessment recorded. Plan of Treatment Reminders Order Date Submit Date Provider Last Modified By Organization Details Last Modified Time Details Appointments None recorded. Lab None recorded. Referral None recorded. Procedures None recorded. Surgeries None recorded. Imaging None recorded. Medication Orders omeprazole 20 mg capsule,del ayed release 2023 024 [facility] #[id number], [address] [place], [address], 11:25:02 Patient TargetsNo targets recorded. Patient InstructionsNo [...] on diagnostic imaging of skull and head 411268156 Active 2023 JUAN MANUEL Aj MD [address] [facility] [address], [facility] [place], [address], [place] - [facility] 11:14:57 Feeling of lump in throat 845310704 Active 2023 JUAN MANUEL Aj MD [address] [place] [address], [place], [address], [place] - [facility] 11:15:02 Gastroesophage al reflux disease without esophagitis 785940116 Active 2023 JUAN MANUEL Aj MD [address] [place] [address], [place], [address], [place] - [facility] 11:23:48 Problem Notes None recorded. Procedures Surgical History Date Name Laterality Status Provider Name and Address Organization Details Recorded Time 09/06/2024 FFL_RE completed JUAN MANUEL HERNANDEZ MD [address] [place] [address], [phone], [facility] - [facility] 09/06/2024 08:49:41 05/10/2024 FFL_RE completed JUAN MANUEL HERNANDEZ MD [address] [place] [address], [phone], [place] - [facility] 05/10/2024 11:23:43 Imaging Results None recorded. Procedure Notes None recorded. Medical Equipment None [...] Updated DateTime 05/10/2024 160.02 cm 28.9 kg/m2 50340.56 g Myla [place] - [facility] 05/10/2024 10:47:11 Date Recorded Body height Body mass index (BMI) Body weight Provider Name and Address Organization Details Last Updated DateTime 09/06/2024 160.02 cm 28.9 kg/m2 20321.56 g Myla [place] - [facility] 09/06/2024 08:46:44 Social History None recorded. Functional Status None recorded. Mental Status None recorded. Family History Nothing Reported. Medical History No medical history recorded. Gynecological HistoryNo gynecological history recorded. Obstetrics History GPAL:G 0 P 0 0 0 0 Past Encounters Encounter ID Performer Location Encounter Start Date Encounter Closed Date Diagnosis/Indication Diagnosis SNOMED-CT Code Diagnosis ICD10 Code Diagnosis IMO Codes Diagnosis Note [id number] JUAN MANUEL HERNANDEZ MD [facility] [address] [address] 05/10/2024 10:10:47 05/10/2024 11:26:36 Abnormal findings on diagnostic imaging of skull and head 527185471 R93.0 No exam correlate with CT or PET findings (which conflict between studies). Feeling of lump in throat 905132995 R09.89 No tumors on FFL. No abnormalit y of BOT or arytenoid on laryngosoc py. Gastroesop hageal reflux disease without esophagitis 630040400 K21.9 Exam was benign. Laryngosco py showed [place] ing. I feel the symptoms are likely due to extra esophageal reflux disease. We will begin a six-week trial of omeprazole which was sent to their pharmacy. We will plan a follow up in 3-4 months to reassess. will plan repeat laryngosoc py at next visit. [id number] JUAN MANUEL HERNANDEZ MD [facility] [address] [address] 09/06/2024 08:27:33 09/06/2024 08:55:25 Abnormal findings on diagnostic imaging of skull and head 168994962 R93.0 No exam correlate with CT or PET findings (which conflict between studies). Feeling of lump in throat 112252587 R09.89 No tumors on FFL. No abnormalit y of BOT or arytenoid on laryngosoc py. Gastroesop hageal reflux disease without esophagitis 381146933 K21.9 Exam was benign. Laryngosco py showed [...] Recorded Advance Directives Directive None Recorded Payers Insurance Date Sequence Insurance Name Policy Number Policy Castañeda Covered Member ID Castañeda Member ID Guarantor Name 09/06/2024 1 [employer] (PPO) M70 Xenia Towsley [id number] Xenia Towsley 09/06/2024 1 CIGNA M70 Xenia Towsley [id number] Xenia Towsley 10/14/2024 1 [id number] Xenia Towsley [id number] Xenia Towsley 04/17/2025 1 [facility] - CIGNA Xenia Pereirasley [id number] Xenia Towsley Notes Date Note Type Note Provider Name and Address Organization Details Recorded Time 05/10/2024 text/html ROS as noted in the HPI She presented to Dr. Noel with 8 months of globus sensation. Currently she has no pain but occasionally she has some pain which radiates to her right ear. It is a burning sensation. Dr. Noel ordered a CT neck with contrast at [facility] 04/08/24 showed mild asymmetric soft tissue fullness [...] has occasional heartburn. JUAN MANUEL HERNANDEZ MD [address] [place] [address], [phone], [place] - [facility] 05/10/2024 11:25:51 09/06/2024 text/html ROS as noted in the HPI She presented to Dr. Noel with 8 months of globus sensation. It has resolved. She did not tolerate omeprazole but did take some supplements to help with reflux and cut back on citrus. Dr. Noel ordered a CT neck with contrast at [facility] 04/08/24 showed mild asymmetric soft tissue fullness of the right tongue base and glossotonsillar sulcus. PET was recommended due to limitation with dental artifact. PET 04/26/24 showed increased metabolic activity of the right arytenoid (SUV 3.4). There was no activity seen in the BOT. She vapes tobacco. She denies trouble swallowing. No voice problems. No difficulty breathing. JUAN MANUEL HERNANDEZ MD [address] [place] [address], [place], [phone], [facility] - [facility] 09/06/2024 08:58:22 OBGyn Episode No OBEpisode recorded.
--- OUTSIDE RECORDS SUMMARY | 2025-09-05 17:43 | XMS_ITS | Patient Health Record ---
Author Organization [facility] Address [address] [place] [address] Care Team Providers Care Pharmaceutical Botanist Name Role Phone Thomas CASILLAS, Galileo Primary Care Provider Mansoor Fregoso [phone] Allergies No Known Allergies Reason For Referral [...] Problem Status W/U Status Risk Notes Problem 056721202 Colon cancer screening (Z12.11) Active confirmed Problem Diverticular disease of colon (652898654) Diverticulosis of large intestine without perforation or abscess without bleeding (K57.30) Active confirmed Problem 653776322080602 Preprocedural examination (Z01.818) Active confirmed Plan Of Treatment Pending Test Test Name Order Date Pathology 09/25/2023 Future Test Test Name Order Date COLONOSCOPY 06/30/2023 Insurance Providers Payer Name Payer Address Payer Phone Subscriber Number Group Number Insured Name Patient Relationship to Insured Coverage Start Date Coverage End Date CIGNA-G WH [address] [place] [address] [id number] LILIYA PIERSON Self - patient is the insured Medical (General) History Medical History History ICD Code Kidney stones Negative screening colonoscopy in 2012 w [facility] Dr. Gutierrez Denies [place],DM,CVA,Lung disease,renal dise ase Surgical History Surgery Date(Month/Year) Carpal tunnel 1991
--- OUTSIDE RECORDS SUMMARY | 2025-09-05 17:43 | XMS_ITS | Patient Health Record ---
Author Organization Galileo Guzman MD Address [address] [place], [place] [id number] Care Team Providers Care Crop Setting Out Machine Operator Name Role Phone Galileo Guzman Primary Care Provider [phone] Allergies No Known Allergies Results Component Value Reference Range Notes Complete Blood Count Auto Di ff Reviewed date:02/10/2025 12:18:16 PM Interpretation: Performing Lab:[facility], [address] [place] [phone] Notes/Report: White Blood Count 5.3 4.8-10.8 X10*3/uL [...] NRBC Abs Auto 0.000 0.0-0.012 X10*3/uL Comprehensive [place]. Panel Fa st Reviewed date:02/10/2025 12:18:33 PM Interpretation: Performing Lab:[address] [phone] Notes/Report: Sodium 142 135-145 mmol/L Potassium 4.4 [...] Panel Reviewed date:02/10/2025 12:17:08 PM Interpretation: Performing Lab:[address] [phone] Notes/Report: Triglycerides 49 <150 mg/dL Desirable Triglyceride: [...] t Reviewed date:02/10/2025 05:09:40 PM Interpretation: Performing Lab:[facility], [address] [place] [phone] Notes/Report: Urine, Clean Catch Color Urine Yellow Appearance Urine Clear PH 5.5 5.0-9.0 Glucose Urine UA Negative Negative mg/dL Urine Blood Negative Negative Specific [place] - Urine 1.025 1.005-1.025 Urine Protein Negative [...] date:05/17/2025 07:29:13 PM Interpretation: Performing Lab: Notes/Report: [address] [address] Ultrasound Report Signed Patient: Xenia Fajardo MR#: [id number] : 1960 Acct:[id number] Age/Sex: 64 / F ADM Date: 05/17/25 Loc: HO.US Attending Dr: Galileo Guzman MD Ordering Physician: Galileo Guzman MD Date of Service: 05/17/25 Procedure(s): US Extremity Nonvas Limited RT Accession Number(s): [id number] cc: Galileo Guzman MD EXAMINATION: Ultrasound extremity, [...] 05/17/25 1219 DD/ 1130 TD/TT: 05/17/25 1135 Credit Collections Analyst: [place] [id number] Ultrasound Report Signed Patient: Xenia Fajardo MR#: [id number] : 1960 Acct:[id number] Age/Sex: 64 / F ADM Date: 05/17/25 Loc: HO.US Attending Dr: Galileo Guzman MD Ordering Physician: Galileo Guzman MD Date of Service: 05/17/25 Procedure(s): US Extremity Nonvas Limited RT Accession Number(s): [id number] cc: Galileo Guzman MD EXAMINATION: Ultrasound extremity [...] 05/17/25 1219 DD/ 1130 TD/TT: 05/17/25 1135 Credit Collections Analyst: Reason For Referral Reason Arm paresthesia righ [...] Status W/U Status Risk Notes Problem Neuropathy (004752208) Neuropathy (G62.9) Active confirmed Problem Solitary nodule of lung (665090712) Lung nodule (R91.1) Active confirmed Problem Dilatation of Aorta (96883512) Aortic dilatation (I77.819) Active confirmed Problem 412321194 History of smoking (Z87.891) Active confirmed Problem Mitral valve disorder (06580689) Moderate mitral regurgitation (I34.0) Active confirmed Problem Skin sensation disturbance (49861931) Arm paresthesia, right (R20.2) Active confirmed Problem 54094754 Vaping nicotine dependence, tobacco product (F17.290) Active [...] Galileo Guzman MD [address] [place] [id number] 02/10/2025 Galileo Guzman Blood tests for routine general physical examination Z00.00 Galileo Guz[address] [place] [id number] 03/23/2025 Galileo Guzman Neuropathy G62.9 Galileo Guzman MD [address] [place] [address] [id number] 02/17/2025 Galileo Gzuman Aortic dilatation I77.819 ; Annual physical exam Z00.00 ; Neuropathy G62.9 and Depression screening Z13.31 Galileo Guzman MD [address] [place] [id number] 04/20/2025 Galileo Guzman Arm paresthesia, right R20.2 Galileo Guzman MD [address] [place] [address] [address] [place] [id number] 05/23/2025 Galileo Guzman Arm paresthesia, right R20.2 Galileo Guzman MD [address] [place] [address] [id number] 07/25/2025 Galileo Guzman Arm paresthesia, right R20.2 Galileo Guzman MD [address] [place] [address] [id number] 04/20/2025 Galileo Guzman MD [address] [place] [address] Drive [address] [place], [place] [id number] 04/21/2025 Galileo Guzman Assessments Encounter Date Diagnosis [...] Name:Galileo Rubi ier, 09/18/2025 11:00:00 AM, [address], [address], [place], [place], [phone], Provider Name:Galileo taylor, 02/12/2026 08:00:00 AM, [address], [address], [place], [place], [phone], Provider Name:Galileo Rubi ier, 02/19/2026 08:30:00 AM, [address], [address], [place], [id number], Insurance Providers Payer Name Payer Address Payer Phone Subscriber Number Group Number Insured Name Patient Relationship to Insured Coverage Start Date Coverage End Date JERSON WHITT [id number] [employer] [place] [id number] Xenia Fajardo Self - patient is the insured Medical (General) History Medical History History ICD Code colonoscopy 2012 done 2022 tubular adeno ma/ repeat in 5 years
== END 2025-09-05 16:14 | disposition home or self-care (01) ==
LOC: HO.HSM 14:21
PROVIDERS: PCP Internal Medicine; Visit Provider Psychiatry & Neurology Neurology
DX: R20.0 Anesthesia of skin (principal)
CPT/HCPCS: 99214